=== PATIENT | male | born 1930 | race American Indian/Alaskan Native ===

== ENCOUNTER 2017-01-30 17:21 | Emergency (ER) | payer MEDICARE ==
--- NOTE | 2017-01-30 19:20 | C.PDOC ---
History Of Present Illness Patient presents to the ED with complaints of left sided rib pain after tripping and falling last night. Patient remembers the event and denies LOC, fever, chills, nausea, or vomiting. Time Seen by Provider: 01/30/17 19:20 Chief Complaint (Nursing): Chest Pain History Per: Patient History/Exam Limitations: no limitations Onset/Duration Of Symptoms: Days (last night ) Current Symptoms Are (Timing): Still Present Severity: Mild Pain Scale Rating Of: 3 Quality: "Pain" Associated Symptoms: denies: Nausea, Dyspnea, Diaphoresis, Syncope Exacerbating Factors: None Alleviating Factors: None Recent travel outside of the [place]: No Additional History Per: Prior Records Past Medical History Reviewed: Historical Data, Nursing Documentation, Vital Signs Vital Signs: Last Vital Signs Temp 98.8 F 01/30/17 17:21 Pulse 88 01/30/17 17:55 Resp 18 01/30/17 17:21 BP 137/66 01/30/17 17:21 Pulse Ox 97 01/30/17 20:12 - Medical History PMH: COPD, Diabetes, HTN Surgical History: CABG (10 years ago), Cholecystectomy Family History: States: Unknown Family Hx - Social History Hx Tobacco Use: No Hx Alcohol Use: No Hx Substance Use: No - Immunization History Hx Tetanus Toxoid Vaccination: No Hx Influenza Vaccination: Yes Hx Pneumococcal Vaccination: Yes Review Of Systems Constitutional: Negative for: Fever, Chills Cardiovascular: Negative for: Chest Pain, Palpitations Gastrointestinal: Negative for: Nausea, Vomiting, Abdominal Pain Musculoskeletal: Positive for: Other (Left sided rib pain). Negative for: Back Pain Skin: Negative for: Rash Neurological: Negative for: Weakness Psych: Negative for: Anxiety Physical Exam - Physical Exam Appears: Non-toxic, No Acute Distress Skin: Warm, Dry, Other (CABG scar ) Head: Normacephalic Eye(s): bilateral: Normal Inspection Oral Mucosa: Moist Neck: Trachea Midline, Supple Chest: Symmetrical, Tenderness (mild tenderness to the mid-auxillary line ), Other (No crepitus ) Cardiovascular: Rhythm Regular Respiratory: No Rales, No Rhonchi, No Wheezing Gastrointestinal/Abdominal: Soft, No Tenderness, No Distention, No Guarding, No Rebound Back: No CVA Tenderness Extremity: Normal ROM, No Tenderness Extremity: Bilateral: Atraumatic, Normal Color And Temperature Neurological/Psych: Oriented x3, Normal Speech, Normal Cognition Gait: Steady ED Course And Treatment O2 Sat by Pulse Oximetry: 97 (room air ) Pulse Ox Interpretation: Normal - Radiology CXR Interpretation: Yes: Other (cabg). No: Infiltrates, Fracture, Pnemothorax - Other Rad ribs X-Ray: Interpreted by Me, Viewed By Me Interpretation: no fx or dislocation Reevaluation Time: 20:05 Reassessment Condition: Improved Disposition Counseled Patient/Family Regarding: Studies Performed, Diagnosis, Need For Followup - Disposition Referrals: Honey Vidales [Staff Provider] - Disposition: HOME/ ROUTINE Disposition Time: 19:20 Condition: FAIR Instructions: Costochondritis (ED), Contusion in Adults (DC) Forms: [employer] (Lithuanian) - Clinical Impression Clinical Impression: Fall, Contusion of rib on left side - Scribe Statement The provider has reviewed the documentation as recorded by the Scribe Ledy Agee All medical record entries made by the Scribe were at my direction and personally dictated by me. I have reviewed the chart and agree that the record accurately reflects my personal performance of the history, physical exam, medical decision making, and the department course for this patient. I have also personally directed, reviewed, and agree with the discharge instructions and disposition.
[2017-01-30 20:30] VITALS: BP 160/70; PULSE 76; RESP 20; TEMP 98.6; O2SAT 98
--- NOTE | 2017-01-31 09:14 | RAD ---
PROCEDURE: Radiographs of the Chest and Left Ribs. HISTORY: fall COMPARISON: None available. TECHNIQUE: Frontal radiograph of the chest and multiple oblique radiographs of the left ribs were obtained. FINDINGS: LEFT RIBS: No appreciable displaced fracture. LUNGS: No focal consolidation. Please note that chest x-ray has limited sensitivity for the detection of pulmonary masses. PLEURA: No significant pleural effusion. No definite pneumothorax. CARDIOVASCULAR: Median sternotomy wires. Heart size appears top normal. Atherosclerotic calcification of the aorta. OTHER FINDINGS: Right upper quadrant surgical clips. IMPRESSION: No appreciable displaced left rib fracture.
--- NOTE | 2017-02-02 17:45 | CARD ---
APPROVED REPORT EKG Measurement Heart [id number] <Conclusion> Normal sinus rhythm Incomplete right bundle branch block Borderline ECG
== END 2017-01-30 20:30 | disposition home or self-care (01) ==
LOC: C.ER 17:21
DX: S20.212A Contusion of left front wall of thorax, initial encounter (principal); W01.0XXA Fall on same level from slipping, tripping and stumbling without subsequent striking against object, initial encounter; Y92.9 Unspecified place or not applicable

== ENCOUNTER 2017-02-07 08:12 | Inpatient (IN) | payer MEDICARE ==
[2017-02-07 08:19] VITALS: BMI 25.0
[2017-02-07] MEDS ORDERED: Albuterol-Ipratrop 3 mg / 0.5 (3 ml) UD INH STA ×2 (08:38)
--- NOTE | 2017-02-07 08:50 | C.PDOC ---
History Of Present Illness Patient presents to ED c/o productive cough with white sputum and worsening wheezing and SOB over the past 2 weeks. He also admits to occasional pleuritic chest pain. Patient denies fever, abdominal pain, nausea/vomiting/diarrhea, dysuria. PMHx of HTN, COPD, DM. Time Seen by Provider: 02/07/17 08:19 Chief Complaint (Nursing): Shortness Of Breath History Per: Patient History/Exam Limitations: clinical condition Onset/Duration Of Symptoms: Days Current Symptoms Are (Timing): Still Present Current Respiratory Medications: See Home Med List Severity: Moderate Associated Symptoms: Productive Cough. denies: Fever, Chills Past Medical History Reviewed: Historical Data, Nursing Documentation, Vital Signs Vital Signs: Last Vital Signs Temp 98.1 F 02/12/17 07:10 Pulse 79 02/12/17 07:37 Resp 18 02/12/17 07:10 BP 180/92 H 02/12/17 07:10 Pulse Ox 97 02/12/17 07:10 - Medical History PMH: COPD, Diabetes, HTN Surgical History: CABG (10 years ago), Cholecystectomy Family History: States: No Known Family Hx - Social History Hx Tobacco Use: No Hx Alcohol Use: No Hx Substance Use: No - Immunization History Hx Tetanus Toxoid Vaccination: No Hx Influenza Vaccination: Yes Hx Pneumococcal Vaccination: Yes Review Of Systems Except As Marked, All Systems Reviewed And Found Negative. Constitutional: Negative for: Fever, Chills Cardiovascular: Negative for: Chest Pain, Palpitations Respiratory: Positive for: Cough, Shortness of Breath, Wheezing Gastrointestinal: Negative for: Nausea, Vomiting, Abdominal Pain, Diarrhea Genitourinary: Negative for: Dysuria, Hematuria Physical Exam - Physical Exam Appears: Non-toxic, In Acute Distress (in mild to moderate respiratory distress) Skin: Normal Color, Warm, Dry Oral Mucosa: Moist Cardiovascular: Rhythm Regular (tachycardic ) Respiratory: Accessory Muscle Use (mild), No Rales, No Rhonchi, Wheezing ( diffuse wheezing B/L, audible without auscultation) Gastrointestinal/Abdominal: Normal Exam, Bowel Sounds, Soft, No Tenderness Extremity: Pedal Edema (+1 pitting edema B/L LEs), No Calf Tenderness Pulses: Left Dorsalis Pedis: Normal, Right Dorsalis Pedis: Normal Neurological/Psych: Oriented x3 ED Course And Treatment - Laboratory Results Result Diagrams: 02/11/17 06:33 02/11/17 06:33 ECG: Interpreted By Me, Viewed By Me (Sinus tachycardia 111bpm, normal axis, RBBB, Q waves III, aVF, no acute ST/T wave changes) ECG Interpretation: Abnormal O2 Sat by Pulse Oximetry: 94 (RA) Pulse Ox Interpretation: Normal - Other Rad CXR X-Ray: Viewed By Me, Read By Radiologist Interpretation: Accession No. : [id number]. Patient Name / ID : ZAK CHAN / [id number]. Exam Date : 02/07/2017 08:35:11 ( Approved ). Study Comment : Sex / Age : M / [id number]. Creator : TEJAS TATE MD. Dictator : TEJAS TATE MD. Cash Shortage Investigator : Distribution Warehouse Manager : TEJAS TATE MD. Approver2 : Report Date : 02/07/2017 10:18:12. My Comment : . PROCEDURE: CHEST RADIOGRAPH, 1 VIEW. HISTORY: SOB. COMPARISON: 01/30/2017. FINDINGS: LUNGS: Ill-defined opacity at right lung base. Possible developing pneumonia. Followup advised. No other abnormal opacity elsewhere. PLEURA: No pneumothorax or pleural fluid seen. CARDIOVASCULAR: Status post CABG. Normal heart size. OSSEOUS STRUCTURES: No significant abnormalities. VISUALIZED UPPER ABDOMEN: Normal. OTHER FINDINGS: None. IMPRESSION: Ill-defined opacity at right base. Possible developing pneumonia. Follow-up advised. Progress Note: Blood work, CXR, EKG ordered and reviewed. Patient placedon Bipap emergently. IV solumedrol, duoneb treatments ordered. IV rocephin + azithromycin ordered for pneumonia. Reevaluation Time: 12:25 Reassessment Condition: Improved (Patient reassessed, appears significantly improved. On exam, he has mild expiratory wheezing and no accessory muslce use. Will need admission for COPD + pneumonia.) - Physician Consult Information Physician Contacted: Toi Muñoz Jr. Outcome Of Conversation: Discussed patient with morales Harley with admission for copd exacerbation, dypsnea, pneumonia. vice president of academic affairs notified of admission. Critical Care Time - Critical Care Note Total Time (in mins): 35 Documented critical care: time excludes all time spent performing seperately billable procedures. Medical Decision Making Medical Decision Making: differential diagnoses considered: asthma/copd exacerbation, CHF exacerbation, IA/ACS, PE, pneumonia, bronchitis Disposition - Disposition Disposition: HOSPITALIZED Disposition Time: 12:39 Condition: STABLE - Clinical Impression Clinical Impression: COPD exacerbation, Pneumonia, Dyspnea Decision To Admit - Pt Status Changed To: Hospital Disposition Of: Inpatient - Admit Certification Admit to Inpatient:: After my assessment, the patient will require hospitalization for at least two midnights. This is because of the severity of symptoms shown, intensity of services needed, and/or the medical risk in this patient being treated as an outpatient. - InPatient: Physician Admission Certification: I certify that this patient requires 2 or more midnights of care for the following reason:: see notes - . Bed Request Type: Telemetry Admitting Physician: Toi Muñoz Jr. Patient Diagnosis: COPD exacerbation, Pneumonia, Dyspnea
[2017-02-07] MEDS ORDERED: Albuterol-Ipratrop 3 mg / 0.5 (3 ml) UD ONE (08:54)
[2017-02-07 09:18] LABS: CHLORIDE 107 mmol/L (98-107)
[2017-02-07 09:19] LABS: POTASSIUM 4.9 mmol/L (3.6-5.2); SODIUM 142 mmol/L (132-148)
[2017-02-07 09:21] LABS: ALB/GLOB RATIO 0.7 (1.0-2.1); ALKALINE PHOSPHATASE 125 U/L (38-126); AST/SGOT 46 U/L (17-59); BILIRUBIN,TOTAL 1.8 mg/dL (0.2-1.3); BLOOD UREA NITROGEN 14 mg/dL (9-20); CARBON DIOXIDE 22 mmol/L (22-30); GFR AFRICAN-AMERICAN > 60; TOTAL PROTEIN 9.1 g/dL (6.3-8.3)
[2017-02-07 09:22] LABS: ALT/SGPT 26 U/L (21-72); CALCIUM 9.1 mg/dl (8.6-10.4); GLUCOSE,RANDOM 107 mg/dL (75-110)
[2017-02-07] MEDS ORDERED: Albuterol 0.083% Inhal Sol (2.5 mg/3 mL) UD IH STA ×3 (10:06→12:30)
--- NOTE | 2017-02-07 10:19 | RAD ---
PROCEDURE: CHEST RADIOGRAPH, 1 VIEW HISTORY: SOB COMPARISON: 01/30/2017 FINDINGS: LUNGS: Ill-defined opacity at right lung base. Possible developing pneumonia. Followup advised. No other abnormal opacity elsewhere. PLEURA: No pneumothorax or pleural fluid seen. CARDIOVASCULAR: Status post CABG. Normal heart size. OSSEOUS STRUCTURES: No significant abnormalities. VISUALIZED UPPER ABDOMEN: Normal. OTHER FINDINGS: None. IMPRESSION: Ill-defined opacity at right base. Possible developing pneumonia. Follow-up advised.
[2017-02-07] MEDS ORDERED: Albuterol 0.083% Inhal Sol (2.5 mg/3 mL) UD ONE ×2 (10:48→12:45)
[2017-02-07 10:54] LABS: ALB/GLOB RATIO 0.7 (1.0-2.1); ALKALINE PHOSPHATASE 97 U/L (38-126); ALT/SGPT 27 U/L (21-72); AST/SGOT 29 U/L (17-59); BLOOD UREA NITROGEN 15 mg/dL (9-20); CALCIUM 8.8 mg/dl (8.6-10.4); CARBON DIOXIDE 22 mmol/L (22-30); CHLORIDE 107 mmol/L (98-107); GFR AFRICAN-AMERICAN > 60; GLUCOSE,RANDOM 100 mg/dL (75-110); POTASSIUM 3.9 mmol/L (3.6-5.2); SODIUM 140 mmol/L (132-148); TOTAL PROTEIN 7.5 g/dL (6.3-8.3)
[2017-02-07 11:11] LABS: INR 1.4
[2017-02-07 12:01] LABS: BASO # 0.1 K/uL (0.0-0.2); BASO % 0.9 % (0.0-2.0); EOS # 5.3 K/uL (0.0-0.7); EOS % 47.5 % (0.0-4.0); HEMATOCRIT 31.1 % (35.0-51.0); LYMPH # 1.9 K/uL (1.0-4.3); LYMPH % 17.2 % (20.0-40.0); MEAN CELL VOLUME 89.1 fL (80.0-94.0); MEAN CORPUSCULAR HEMOGLOBIN 29.4 pg (27.0-31.0); MEAN PLATELET VOLUME 8.2 fL (7.2-11.7); MONO # 0.4 K/uL (0.0-0.8); MONO % 3.3 % (0.0-10.0); NRBC % 0.1 % (0.0-2.0); PLATELET COUNT 173 K/uL (130-400); RED CELL DISTRIBUTION WIDTH 17.5 % (11.5-14.5)
[2017-02-07 12:07] LABS: WHITE BLOOD COUNT 11.1 K/uL (4.8-10.8)
[2017-02-07] MEDS ORDERED: Azithromycin 500 MG in Sodium Chloride 0.9% 250 ML IVPB STA (12:31)
[2017-02-07 12:35] LABS: REACTIVE LYMPHOCYTES 1 % (0-0); TOTAL CELLS COUNTED 100
[2017-02-07 12:36] LABS: EOSINOPHIL 49 % (0-4); NEUTROPHIL 31 % (50-75)
[2017-02-07] MEDS ORDERED: cefTRIAXone IV 1 gm in Dextros 50 ML IVPB ONE (12:46)
[2017-02-07] MEDS ORDERED: Azithromycin 500mg/250ML NS 500 MG/250 ML BAG IVPB ONE (12:47)
--- NOTE | 2017-02-07 12:55 | CP.PCM.HP ---
History of Present Illness - History of Present Illness History of Present Illness: Medicine Note for Dr. Muñoz CC: productive cough x 2 weeks HPI: 86 M with PMHx of COPD, DM, HTN presents to the ED for productive cough. Patient was seen in the ED on 01/30/17 for left sided rib pain s/p fall, no fracture was identified. Patient comes in today with a productive cough with white sputum x 2 weeks. He admitted to pain on inspiration, chills, and generalized body ache. Patient reports he did receive his flu shot for this year. He follows with his personal MD yearly, but has not seen him in 6-7 months. Patient performs all his ADLs without assistance and does not walk with a cane or walker. He lives at home with his . Denied any fever, chills, headache, chest pain, abdominal pain, n/v/d/c, or urinary symptoms. PMHx: COPD, DM, HTN PSHx: CABG (10 years ago), Cholecystectomy Meds: Reviewed and confirmed, as per MAR All: NKDA SHx: Denied x3 FHx: Unremarkable PMD: Follows up with a PMD, but cannot recall the MD's name. 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) - ANESTHESIA Hx Anesthesia: Yes Hx Anesthesia Reactions: No Hx Malignant Hyperthermia: No Meds Allergies/Adverse Reactions: Allergies Allergy/AdvReac Type Severity Reaction Status Date / Time No Known Allergies Allergy Verified 02/07/17 08:19 Physical Exam - Constitutional Appears: No Acute Distress - Head Exam Head Exam: NORMAL INSPECTION, NORMOCEPHALIC - Eye Exam Eye Exam: EOMI, Normal appearance, PERRL Pupil Exam: NORMAL ACCOMODATION - ENT Exam ENT Exam: Mucous Membranes Moist - Neck Exam Neck exam: Positive for: Normal Inspection - Respiratory Exam Respiratory Exam: Chest Wall Tenderness (RLL area), Wheezes (DIFFUSE expiratory wheezing ). absent: Accessory Muscle Use, Decreased Breath Sounds, Rales - Cardiovascular Exam Cardiovascular Exam: Tachycardia, +S1, +S2 - GI/Abdominal Exam GI & Abdominal Exam: Normal Bowel Sounds, Soft. absent: Distended, Tenderness - Rectal Exam Rectal Exam: Deferred - Extremities Exam Extremities exam: Positive for: normal inspection, pedal pulses present. Negative for: pedal edema, tenderness - Neurological Exam Neurological exam: Alert, Oriented x3 - Psychiatric Exam Psychiatric exam: Normal Affect, Normal Mood - Skin Skin Exam: Dry, Intact, Normal Color, Warm Results - Vital Signs Recent Vital Signs: Last Vital Signs Temp 97.6 F 02/07/17 11:46 Pulse 99 H 02/07/17 12:24 Resp 19 02/07/17 11:46 BP 147/69 02/07/17 11:46 Pulse Ox 94 L 02/07/17 12:35 - Labs Result Diagrams: 02/07/17 11:36 02/07/17 10:29 Labs: Laboratory Results - last 24 hr 02/07/17 02/07/17 02/07/17 09:06 10:29 10:29 WBC RBC Hgb Hct MCV MCH MCHC RDW Plt Count MPV Neut % (Auto) Lymph % (Auto) [place] % (Auto) Eos % (Auto) Baso % (Auto) Neut # Lymph # [place] # Eos # Baso # Neutrophils % (Manual) Band Neutrophils % Lymphocytes % (Manual) Reactive Lymphs % Monocytes % (Manual) Eosinophils % (Manual) Platelet Estimate Hypochromasia (manual) Poikilocytosis (manual Anisocytosis (manual) Target Cells PT 16.4 H INR 1.4 APTT 28 Sodium 142 140 Potassium 4.9 3.9 Chloride 107 107 Carbon Dioxide 22 22 Anion Gap 18 15 BUN 14 15 Creatinine 0.9 0.9 Est GFR ( Amer) > 60 > 60 Est GFR (Non-Af Amer) > 60 > 60 POC Glucose (mg/dL) Random Glucose 107 100 Calcium 9.1 8.8 Total Bilirubin 1.8 H 1.0 AST 46 29 ALT 26 27 Alkaline Phosphatase 125 97 Total Creatine Kinase 112 81 CK-MB (Mass) 1.65 1.28 Troponin I 0.0330 NT-Pro-B Natriuret Pep 591 582 Total Protein 9.1 H 7.5 Albumin 3.8 3.2 L Globulin 5.3 H 4.3 H Albumin/Globulin Ratio 0.7 L 0.7 L 02/07/17 02/07/17 11:32 11:36 WBC 11.1 H D RBC 3.49 L Hgb 10.3 L D Hct 31.1 L MCV 89.1 D MCH 29.4 MCHC 33.0 RDW 17.5 H Plt Count 173 MPV 8.2 Neut % (Auto) 31.1 L Lymph % (Auto) 17.2 L [place] % (Auto) 3.3 Eos % (Auto) 47.5 H Baso % (Auto) 0.9 Neut # 3.5 Lymph # 1.9 [place] # 0.4 Eos # 5.3 H Baso # 0.1 Neutrophils % (Manual) 31 L Band Neutrophils % 1 Lymphocytes % (Manual) 17 L Reactive Lymphs % 1 H Monocytes % (Manual) 1 Eosinophils % (Manual) 49 H Platelet Estimate Normal Hypochromasia (manual) Slight Poikilocytosis (manual Slight Anisocytosis (manual) Slight Target Cells Slight PT INR APTT Sodium Potassium Chloride Carbon Dioxide Anion Gap BUN Creatinine Est GFR ( Amer) Est GFR (Non-Af Amer) POC Glucose (mg/dL) 119 H Random Glucose Calcium Total Bilirubin AST ALT Alkaline Phosphatase Total Creatine Kinase CK-MB (Mass) Troponin I NT-Pro-B Natriuret Pep Total Protein Albumin Globulin Albumin/Globulin Ratio Assessment & Plan - Assessment and Plan (Free Text) Plan: RLL Pneumonia * Afebrile, tachycardic, normotensive, leukocytosis, left shift, no bandemia * CXR: Ill-defined opacity at right base. Possible developing pneumonia. Follow-up advised. * Started on Rocephin and Azithromycin 02/07/17, patient received solumedrol in the ED and will be continued on solumedrol, expect increased leukocytosis * Zofran PRN, Toradol PRN for pleuritic pain, tylenol PRN for fever * f/u blood cultures, procalcitonin, rapid flu COPD * Solumedrol 40mg Q8H * Duonebs, mucomyst PRN * Phenergan PRN cough DM * Accuchecks * Metformin 500mg PO BID * f/u HGA1C HTN * Norvasc 10mg PO daily and Cozaar 100mg PO daily Hx of CABG Prophylactic Measures * GI PPX: Pepcid 40mg PO daily * DVT PPX: SCDs, Heparin [id number] DW Tosin Harley DO, PGY-1
[2017-02-07] MEDS: Acetylcysteine 20% Inhal Soln (4ml) INH SCH (20:11)
[2017-02-07] MEDS: Albuterol-Ipratrop 3 mg / 0.5 (3 ml) UD INH SCH (20:11)
[2017-02-07] MEDS: MethylPREDNISolone 40 mg Vial IVP SCH (21:00)
[2017-02-08] MEDS: Promethazine 12.5 mg/10 ml Syrup PO PRN ×3 (00:46→14:33)
[2017-02-08] MEDS: Albuterol-Ipratrop 3 mg / 0.5 (3 ml) UD INH SCH ×4 (02:16→19:53)
[2017-02-08] MEDS: Acetylcysteine 20% Inhal Soln (4ml) INH SCH ×4 (02:16→19:54)
[2017-02-08] MEDS: MethylPREDNISolone 40 mg Vial IVP SCH ×3 (03:01→19:24)
[2017-02-08 06:25] LABS: BASO # 0.1 K/uL (0.0-0.2); CHLORIDE 104 mmol/L (98-107); EOS % 0.3 % (0.0-4.0); HEMATOCRIT 30.6 % (35.0-51.0); LYMPH # 1.4 K/uL (1.0-4.3); LYMPH % 19.9 % (20.0-40.0); MEAN CELL VOLUME 88.7 fL (80.0-94.0); MEAN CORPUSCULAR HEMOGLOBIN 29.9 pg (27.0-31.0); MEAN CORPUSCULAR HGB CONC 33.7 g/dL (33.0-37.0); MEAN PLATELET VOLUME 8.2 fL (7.2-11.7); MONO # 0.2 K/uL (0.0-0.8); MONO % 2.6 % (0.0-10.0); RED CELL DISTRIBUTION WIDTH 17.6 % (11.5-14.5); WHITE BLOOD COUNT 7.1 K/uL (4.8-10.8)
[2017-02-08 06:26] LABS: SODIUM 141 mmol/L (132-148)
[2017-02-08 06:27] LABS: POTASSIUM 4.2 mmol/L (3.6-5.2)
[2017-02-08 06:28] LABS: CHOLESTEROL 133 mg/dL (0-199)
[2017-02-08 06:29] LABS: ALB/GLOB RATIO 0.7 (1.0-2.1); ALKALINE PHOSPHATASE 107 U/L (38-126); ALT/SGPT 30 U/L (21-72); AST/SGOT 27 U/L (17-59); BILIRUBIN,TOTAL 0.8 mg/dL (0.2-1.3); BLOOD UREA NITROGEN 19 mg/dL (9-20); CARBON DIOXIDE 23 mmol/L (22-30); GFR AFRICAN-AMERICAN > 60; GLUCOSE,RANDOM 178 mg/dL (75-110); PHOSPHOROUS 3.4 mg/dL (2.5-4.5); TOTAL PROTEIN 8.1 g/dL (6.3-8.3)
[2017-02-08 06:30] LABS: CALCIUM 8.9 mg/dl (8.6-10.4); MAGNESIUM 2.3 mg/dL (1.6-2.3)
[2017-02-08 07:00] LABS: THYROID STIMULATING HORMONE 0.09 mIU/L (0.46-4.68)
--- NOTE | 2017-02-08 07:53 | CP.PCM.PN ---
<Pritesh Caldwell - Last Filed: 02/08/17 13:54> Subjective - Date & Time of Evaluation Date of Evaluation: 02/08/17 Time of Evaluation: 07:53 - Subjective Subjective: Medicine note for Dr. Muñoz's Service Pt seen and examined at bedside.He states that he is feeling much better from time of admission. He continues to cough and is requesting a cough suppressant to help him out with this. He denies F/C/N/V/CP/SOB/D/C. Objective - Vital Signs/Intake and Output Vital Signs (last 24 hours): Temp Pulse Resp BP Pulse Ox 98.3 F 80 20 155/73 H 100 02/07/17 23:30 02/08/17 05:50 02/07/17 23:30 02/07/17 23:30 02/07/17 23:30 Intake and Output: 02/08/17 02/08/17 06:59 18:59 Intake Total 430 Output Total 200 Balance 230 - Medications Medications: Current Medications Acetaminophen (Tylenol 325mg Tab) 650 mg PO Q6 PRN PRN Reason: Fever >100.4 F Acetylcysteine (Acetylcysteine 20%) 4 ml INH RQ6 [facility] Last Admin: 02/08/17 07:29 Dose: 4 ml Albuterol/Ipratropium (Duoneb 3 Mg/0.5 Mg (3 Ml) Ud) 3 ml INH RQ6 [facility] Last Admin: 02/08/17 07:29 Dose: 3 ml Amlodipine Besylate (Norvasc) 10 mg PO DAILY [facility] Famotidine (Pepcid) 40 mg PO DAILY [facility] Heparin Sodium (Porcine) (Heparin) 5,000 units SC Q12 [facility] Last Admin: 02/07/17 22:37 Dose: 5,000 units Azithromycin 500 mg/ Sodium (Chloride) 250 mls @ 250 mls/hr IVPB DAILY [facility] Ceftriaxone Sodium 1 gm/ (Sodium Chloride) 100 mls @ 100 mls/hr IVPB DAILY [facility] Ketorolac Tromethamine (Toradol) 30 mg IVP Q6 PRN PRN Reason: Pain, moderate (4-7) Losartan Potassium (Cozaar) 100 mg PO DAILY [facility] Metformin HCl (Glucophage) 500 mg PO BID [facility] Last Admin: 02/07/17 17:45 Dose: 500 mg Methylprednisolone (Solu-Medrol) 40 mg IVP Q8H [facility] Last Admin: 02/08/17 03:01 Dose: 40 mg Ondansetron HCl (Zofran Inj) 4 mg IVP Q6H PRN PRN Reason: Nausea/Vomiting Promethazine HCl (Phenergan Syrup) 12.5 mg PO Q6 PRN PRN Reason: Cough Last Admin: 02/08/17 06:45 Dose: 12.5 mg - Labs Labs: 02/08/17 06:09 02/08/17 06:09 PT 16.4 SECONDS (9.7-12.2) H 02/07/17 10:29 INR 1.4 02/07/17 10:29 APTT 28 SECONDS (21-34) 02/07/17 10:29 - Constitutional Appears: No Acute Distress - Head Exam Head Exam: ATRAUMATIC - Eye Exam Eye Exam: EOMI - ENT Exam ENT Exam: Mucous Membranes Moist - Respiratory Exam Respiratory Exam: Decreased Breath Sounds, NORMAL BREATHING PATTERN. absent: Respiratory Distress Additional comments: coarse breath sounds R>L - Cardiovascular Exam Cardiovascular Exam: Tachycardia (mild), REGULAR RHYTHM - GI/Abdominal Exam GI & Abdominal Exam: Soft. absent: Tenderness - Neurological Exam Neurological Exam: Alert, Awake, Oriented x3 Assessment and Plan - Assessment and Plan (Free Text) Plan: RLL Pneumonia * Clinically improved, afebrile overnight, remains tachycardic, normotensive, leukocytosis resolving * CXR: Ill-defined opacity at right base. Possible developing pneumonia. Follow-up advised. * Started on Rocephin and Azithromycin 02/07/17 * Zofran PRN, Toradol PRN for pleuritic pain, tylenol PRN for fever * blood cultures- pending * procalcitonin- negative * rapid flu test- negative * leukocytosis resolving- 11 yesterday down to 7 today COPD * Solumedrol 40mg Q8H * Duonebs, mucomyst PRN * Phenergan PRN cough DM * Accuchecks * Metformin 500mg PO BID * HGA1C- 5.9 HTN * Norvasc 10mg PO daily and Cozaar 100mg PO daily Hx of CABG Prophylactic Measures * GI PPX: Pepcid 40mg PO daily * DVT PPX: SCDs, Heparin [id number] Will discuss [address] Dr. Muñoz. <Toi Muñoz Jr. - Last Filed: 02/17/17 13:53> Objective - Vital Signs/Intake and Output Vital Signs (last 24 hours): Temp Pulse Resp BP Pulse Ox 98.2 F 85 20 159/73 H 96 02/12/17 15:05 02/12/17 15:05 02/12/17 15:05 02/12/17 15:05 02/12/17 15:05 - Labs Labs: 02/12/17 07:50 02/12/17 07:50 PT 16.4 SECONDS (9.7-12.2) H 02/07/17 10:29 INR 1.4 02/07/17 10:29 APTT 28 SECONDS (21-34) 02/07/17 10:29 Attending/Attestation - Attestation I have personally seen and examined this patient.: Yes I have fully participated in the care of the patient.: Yes I have reviewed all pertinent clinical information, including history, physical exam and plan: Yes Notes (Text): 02/17/17 13:53 Agree with resident note and plan of care
[2017-02-08] MEDS: Azithromycin 500 MG in Sodium Chloride 0.9% 250 ML IVPB SCH (09:37)
[2017-02-09] MEDS: Acetylcysteine 20% Inhal Soln (4ml) INH SCH ×4 (01:58→19:58)
[2017-02-09] MEDS: Albuterol-Ipratrop 3 mg / 0.5 (3 ml) UD INH SCH ×4 (01:59→19:58)
[2017-02-09] MEDS: MethylPREDNISolone 40 mg Vial IVP SCH ×3 (04:53→21:00)
--- NOTE | 2017-02-09 07:38 | CP.PCM.PN ---
<Pritesh Caldwell - Last Filed: 02/09/17 08:44> Subjective - Date & Time of Evaluation Date of Evaluation: 02/09/17 Time of Evaluation: 07:38 - Subjective Subjective: Medicine Note for Dr. Muñoz's Service Pt seen and examined at bedside. He states that he is feeling much better today. He reports an improvement in his coughing and states that his wheezing has resolved. He is waiting to be examined by Dr. Bhakta. He denies F/C/N/V/CP/SOB /D/C. Objective - Vital Signs/Intake and Output Vital Signs (last 24 hours): Temp Pulse Resp BP Pulse Ox 98 F 96 H 20 165/83 H 97 02/09/17 04:00 02/09/17 04:20 02/09/17 04:00 02/09/17 04:00 02/08/17 23:27 Intake and Output: 02/09/17 02/09/17 06:59 18:59 Intake Total 470 Balance 470 - Medications Medications: Current Medications Acetaminophen (Tylenol 325mg Tab) 650 mg PO Q6 PRN PRN Reason: Fever >100.4 F Acetylcysteine (Acetylcysteine 20%) 4 ml INH RQ6 [facility] Last Admin: 02/09/17 01:58 Dose: Not Given Albuterol/Ipratropium (Duoneb 3 Mg/0.5 Mg (3 Ml) Ud) 3 ml INH RQ6 [facility] Last Admin: 02/09/17 01:59 Dose: Not Given Amlodipine Besylate (Norvasc) 10 mg PO DAILY [facility] Last Admin: 02/08/17 09:36 Dose: 10 mg Famotidine (Pepcid) 40 mg PO DAILY [facility] Last Admin: 02/08/17 09:36 Dose: 40 mg Heparin Sodium (Porcine) (Heparin) 5,000 units SC Q12 [facility] Last Admin: 02/08/17 22:38 Dose: 5,000 units Azithromycin 500 mg/ Sodium (Chloride) 250 mls @ 250 mls/hr IVPB DAILY [facility] Last Admin: 02/08/17 09:37 Dose: 250 mls/hr Ceftriaxone Sodium 1 gm/ (Sodium Chloride) 100 mls @ 100 mls/hr IVPB DAILY [facility] Last Admin: 02/08/17 09:37 Dose: 100 mls/hr Ketorolac Tromethamine (Toradol) 30 mg IVP Q6 PRN PRN Reason: Pain, moderate (4-7) Last Admin: 02/08/17 19:25 Dose: 30 mg Losartan Potassium (Cozaar) 100 mg PO DAILY [facility] Last Admin: 02/08/17 09:36 Dose: 100 mg Metformin HCl (Glucophage) 500 mg PO BID [facility] Last Admin: 02/08/17 18:05 Dose: 500 mg Methylprednisolone (Solu-Medrol) 40 mg IVP Q8H [facility] Last Admin: 02/09/17 04:53 Dose: 40 mg Ondansetron HCl (Zofran Inj) 4 mg IVP Q6H PRN PRN Reason: Nausea/Vomiting Promethazine HCl (Phenergan Syrup) 12.5 mg PO Q6 PRN PRN Reason: Cough Last Admin: 02/08/17 14:33 Dose: 12.5 mg - Labs Labs: 02/08/17 06:09 02/08/17 06:09 PT 16.4 SECONDS (9.7-12.2) H 02/07/17 10:29 INR 1.4 02/07/17 10:29 APTT 28 SECONDS (21-34) 02/07/17 10:29 - Constitutional Appears: No Acute Distress - Head Exam Head Exam: ATRAUMATIC, NORMAL INSPECTION - Eye Exam Eye Exam: EOMI, Normal appearance - ENT Exam ENT Exam: Mucous Membranes Moist - Respiratory Exam Respiratory Exam: Wheezes (mild expiratory), NORMAL BREATHING PATTERN. absent: Respiratory Distress - Cardiovascular Exam Cardiovascular Exam: REGULAR RHYTHM - GI/Abdominal Exam GI & Abdominal Exam: Soft. absent: Tenderness - Neurological Exam Neurological Exam: Alert, Awake, Oriented x3 - Psychiatric Exam Psychiatric exam: Normal Affect, Normal Mood - Skin Skin Exam: Dry, Intact Assessment and Plan - Assessment and Plan (Free Text) Plan: RLL Pneumonia * Clinically improved, afebrile overnight, remains tachycardic, normotensive, leukocytosis resolving. Patient will be evaluated by Dr. Bhakta prior to discharge. * CXR: Ill-defined opacity at right base. Possible developing pneumonia. Follow-up advised. * Started on Rocephin and Azithromycin 02/07/17 * Zofran PRN, Toradol PRN for pleuritic pain, tylenol PRN for fever * blood cultures- NGTD * procalcitonin- negative * rapid flu test- negative * leukocytosis resolving- 8.8 today COPD * Solumedrol 40mg Q8H * Duonebs, mucomyst PRN * Phenergan PRN cough DM * Accuchecks * Metformin 500mg PO BID * HGA1C- 5.9 HTN * Norvasc 10mg PO daily and Cozaar 100mg PO daily Hx of CABG Low TSH- Possible Subclinical Hyperthyroidism * TSH 0.09 * Free T4 2.15 * Will need outpatient follow up Prophylactic Measures * GI PPX: Pepcid 40mg PO daily * DVT PPX: SCDs, Heparin [id number] Will discuss with Dr. Muñoz. <Toi Muñoz Jr. - Last Filed: 02/17/17 13:55> Objective - Vital Signs/Intake and Output Vital Signs (last 24 hours): Temp Pulse Resp BP Pulse Ox 98.2 F 85 20 159/73 H 96 02/12/17 15:05 02/12/17 15:05 02/12/17 15:05 02/12/17 15:05 02/12/17 15:05 - Labs Labs: 02/12/17 07:50 02/12/17 07:50 PT 16.4 SECONDS (9.7-12.2) H 02/07/17 10:29 INR 1.4 02/07/17 10:29 APTT 28 SECONDS (21-34) 02/07/17 10:29 Attending/Attestation - Attestation I have personally seen and examined this patient.: Yes I have fully participated in the care of the patient.: Yes I have reviewed all pertinent clinical information, including history, physical exam and plan: Yes Notes (Text): 02/17/17 13:54 Agree with resident note and plan of care
[2017-02-09 08:00] LABS: BASO % 0.4 % (0.0-2.0); HEMATOCRIT 31.7 % (35.0-51.0); LYMPH # 1.2 K/uL (1.0-4.3); LYMPH % 13.9 % (20.0-40.0); MEAN CELL VOLUME 87.8 fL (80.0-94.0); MEAN CORPUSCULAR HEMOGLOBIN 28.9 pg (27.0-31.0); MEAN CORPUSCULAR HGB CONC 32.9 g/dL (33.0-37.0); MEAN PLATELET VOLUME 8.1 fL (7.2-11.7); MONO # 0.4 K/uL (0.0-0.8); MONO % 4.6 % (0.0-10.0); RED CELL DISTRIBUTION WIDTH 17.2 % (11.5-14.5); WHITE BLOOD COUNT 8.8 K/uL (4.8-10.8)
[2017-02-09 08:20] LABS: CHLORIDE 102 mmol/L (98-107); SODIUM 140 mmol/L (132-148)
[2017-02-09 08:21] LABS: POTASSIUM 4.7 mmol/L (3.6-5.2)
[2017-02-09 08:22] LABS: GFR AFRICAN-AMERICAN > 60
[2017-02-09 08:23] LABS: ALB/GLOB RATIO 0.7 (1.0-2.1); ALKALINE PHOSPHATASE 91 U/L (38-126); ALT/SGPT 35 U/L (21-72); AST/SGOT 26 U/L (17-59); BILIRUBIN,TOTAL 0.6 mg/dL (0.2-1.3); BLOOD UREA NITROGEN 30 mg/dL (9-20); CALCIUM 9.3 mg/dl (8.6-10.4); CARBON DIOXIDE 26 mmol/L (22-30); GLUCOSE,RANDOM 155 mg/dL (75-110); PHOSPHOROUS 3.6 mg/dL (2.5-4.5); TOTAL PROTEIN 7.8 g/dL (6.3-8.3)
[2017-02-09 08:24] LABS: MAGNESIUM 2.3 mg/dL (1.6-2.3)
[2017-02-09] MEDS: Azithromycin 500 MG in Sodium Chloride 0.9% 250 ML IVPB SCH (11:50)
[2017-02-10] MEDS: Acetylcysteine 20% Inhal Soln (4ml) INH SCH ×4 (01:15→19:39)
[2017-02-10] MEDS: Albuterol-Ipratrop 3 mg / 0.5 (3 ml) UD INH SCH ×4 (01:15→19:39)
[2017-02-10] MEDS: MethylPREDNISolone 40 mg Vial IVP SCH ×3 (04:01→21:00)
[2017-02-10 07:36] LABS: BASO % 0.4 % (0.0-2.0); EOS % 0.1 % (0.0-4.0); HEMATOCRIT 31.7 % (35.0-51.0); LYMPH % 11.3 % (20.0-40.0); MEAN CELL VOLUME 88.7 fL (80.0-94.0); MEAN CORPUSCULAR HEMOGLOBIN 29.6 pg (27.0-31.0); MEAN CORPUSCULAR HGB CONC 33.4 g/dL (33.0-37.0); MEAN PLATELET VOLUME 8.1 fL (7.2-11.7); MONO # 0.2 K/uL (0.0-0.8); MONO % 2.7 % (0.0-10.0); NRBC % 0.2 % (0.0-2.0); RED CELL DISTRIBUTION WIDTH 17.1 % (11.5-14.5); WHITE BLOOD COUNT 8.5 K/uL (4.8-10.8)
[2017-02-10 07:50] LABS: CHLORIDE 101 mmol/L (98-107); SODIUM 136 mmol/L (132-148)
[2017-02-10 07:51] LABS: POTASSIUM 4.6 mmol/L (3.6-5.2)
[2017-02-10 07:52] LABS: GFR AFRICAN-AMERICAN > 60
[2017-02-10 07:53] LABS: ALB/GLOB RATIO 0.8 (1.0-2.1); ALKALINE PHOSPHATASE 84 U/L (38-126); ALT/SGPT 61 U/L (21-72); AST/SGOT 47 U/L (17-59); BILIRUBIN,TOTAL 0.6 mg/dL (0.2-1.3); BLOOD UREA NITROGEN 34 mg/dL (9-20); CALCIUM 9.2 mg/dl (8.6-10.4); CARBON DIOXIDE 23 mmol/L (22-30); GLUCOSE,RANDOM 173 mg/dL (75-110); PHOSPHOROUS 3.4 mg/dL (2.5-4.5); TOTAL PROTEIN 7.6 g/dL (6.3-8.3)
[2017-02-10 07:54] LABS: MAGNESIUM 2.1 mg/dL (1.6-2.3)
[2017-02-10] MEDS: Promethazine 12.5 mg/10 ml Syrup PO PRN (10:00)
[2017-02-10] MEDS: Azithromycin 500 MG in Sodium Chloride 0.9% 250 ML IVPB SCH (10:00)
--- NOTE | 2017-02-10 12:14 | CP.PCM.CON ---
History of Present Illness - History of Present Illness History of Present Illness: reason for consultation: productive cough and shortness of breath 86-year-old male with past medical history off COPD, hypertension, diabetes presented to emergency room with 2 week history off cough productive of whitish phlegm associated with increasing shortness of breath, not responding to nebulizer treatment. Also was complaining off chills but no fever. PMHx: COPD, DM, HTN PSHx: CABG (10 years ago), Cholecystectomy Meds: Reviewed and confirmed, as per MAR All: NKDA SHx: Denied x3 FHx: Unremarkable Review of Systems - Review of Systems All systems: reviewed and no additional remarkable complaints except (shortness of breath, productive cough and chills) Past Patient History - Infectious Disease Hx of Infectious Diseases: None - Past Social History Smoking Status: Former Smoker - CARDIAC Hx Hypertension: Yes - PULMONARY Hx Chronic Obstructive Pulmonary Disease (COPD): Yes - NEUROLOGICAL Hx Neurological Disorder: No - HEENT Hx HEENT Problems: No - RENAL Hx Chronic Kidney Disease: No - ENDOCRINE/METABOLIC Hx Endocrine Disorders: Yes Hx Diabetes Mellitus Type 2: Yes - HEMATOLOGICAL/ONCOLOGICAL Hx Blood Disorders: No - INTEGUMENTARY Hx Dermatological Problems: No - MUSCULOSKELETAL/RHEUMATOLOGICAL Hx Musculoskeletal Disorders: No Hx Falls: No - GASTROINTESTINAL Hx Gastrointestinal Disorders: No - GENITOURINARY/GYNECOLOGICAL Hx Genitourinary Disorders: No - PSYCHIATRIC Hx Psychophysiologic Disorder: No Hx Substance Use: No - SURGICAL HISTORY Hx Surgeries: Yes Hx Cholecystectomy: Yes 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) - ANESTHESIA Hx Anesthesia: Yes Hx Anesthesia Reactions: No Hx Malignant Hyperthermia: No Meds Allergies/Adverse Reactions: Allergies Allergy/AdvReac Type Severity Reaction Status Date / Time No Known Allergies Allergy Verified 02/07/17 08:19 - Medications Medications: Current Medications Acetaminophen (Tylenol 325mg Tab) 650 mg PO Q6 PRN PRN Reason: Fever >100.4 F Acetylcysteine (Acetylcysteine 20%) 4 ml INH RQ6 [facility] Last Admin: 02/10/17 07:30 Dose: Not Given Albuterol/Ipratropium (Duoneb 3 Mg/0.5 Mg (3 Ml) Ud) 3 ml INH RQ6 [facility] Last Admin: 02/10/17 07:31 Dose: 3 ml Amlodipine Besylate (Norvasc) 10 mg PO DAILY [facility] Last Admin: 02/10/17 09:58 Dose: 10 mg Famotidine (Pepcid) 40 mg PO DAILY [facility] Last Admin: 02/10/17 09:58 Dose: 40 mg Heparin Sodium (Porcine) (Heparin) 5,000 units SC Q12 [facility] Last Admin: 02/10/17 09:59 Dose: 5,000 units Azithromycin 500 mg/ Sodium (Chloride) 250 mls @ 250 mls/hr IVPB DAILY [facility] Last Admin: 02/10/17 10:00 Dose: 250 mls/hr Ceftriaxone Sodium 1 gm/ (Sodium Chloride) 100 mls @ 100 mls/hr IVPB DAILY [facility] Last Admin: 02/10/17 10:00 Dose: 100 mls/hr Losartan Potassium (Cozaar) 100 mg PO DAILY [facility] Last Admin: 02/10/17 09:59 Dose: 100 mg Metformin HCl (Glucophage) 500 mg PO BID [facility] Last Admin: 02/10/17 09:58 Dose: 500 mg Methylprednisolone (Solu-Medrol) 40 mg IVP Q8H [facility] Last Admin: 02/10/17 11:25 Dose: 40 mg Ondansetron HCl (Zofran Inj) 4 mg IVP Q6H PRN PRN Reason: Nausea/Vomiting Promethazine HCl (Phenergan Syrup) 12.5 mg PO Q6 PRN PRN Reason: Cough Last Admin: 02/10/17 10:00 Dose: 12.5 mg Physical Exam - Constitutional Appears: No Acute Distress - Head Exam Head Exam: ATRAUMATIC, NORMOCEPHALIC - Eye Exam Eye Exam: Normal appearance - ENT Exam ENT Exam: Mucous Membranes Moist - Neck Exam Neck exam: Positive for: Normal Inspection - Respiratory Exam Respiratory Exam: Rhonchi - Cardiovascular Exam Cardiovascular Exam: REGULAR RHYTHM - GI/Abdominal Exam GI & Abdominal Exam: Normal Bowel Sounds, Soft - Extremities Exam Extremities exam: Positive for: normal inspection - Neurological Exam Neurological exam: Alert, Oriented x3 Results - Vital Signs Recent Vital Signs: Last Vital Signs Temp 98.0 F 02/10/17 07:50 Pulse 92 H 02/10/17 07:50 Resp 18 02/10/17 07:50 BP 153/74 H 02/10/17 07:50 Pulse Ox 97 02/10/17 07:50 - Labs Result Diagrams: 02/10/17 07:15 02/10/17 07:15 Labs: Laboratory Results - last 24 hr 02/09/17 02/10/17 02/10/17 21:49 06:13 07:15 WBC 8.5 RBC 3.57 L Hgb 10.6 L Hct 31.7 L MCV 88.7 MCH 29.6 MCHC 33.4 RDW 17.1 H Plt Count 148 MPV 8.1 Neut % (Auto) 85.5 H Lymph % (Auto) 11.3 L [place] % (Auto) 2.7 Eos % (Auto) 0.1 Baso % (Auto) 0.4 Neut # 7.3 H Lymph # 1.0 [place] # 0.2 Eos # 0.0 Baso # 0.0 Sodium Potassium Chloride Carbon Dioxide Anion Gap BUN Creatinine Est GFR ( Amer) Est GFR (Non-Af Amer) POC Glucose (mg/dL) 245 H 198 H Random Glucose Calcium Phosphorus Magnesium Total Bilirubin AST ALT Alkaline Phosphatase Total Protein Albumin Globulin Albumin/Globulin Ratio 02/10/17 07:15 WBC RBC Hgb Hct MCV MCH MCHC RDW Plt Count MPV Neut % (Auto) Lymph % (Auto) [place] % (Auto) Eos % (Auto) Baso % (Auto) Neut # Lymph # [place] # Eos # Baso # Sodium 136 Potassium 4.6 Chloride 101 Carbon Dioxide 23 Anion Gap 16 BUN 34 H Creatinine 1.2 Est GFR ( Amer) > 60 Est GFR (Non-Af Amer) 58 POC Glucose (mg/dL) Random Glucose 173 H Calcium 9.2 Phosphorus 3.4 Magnesium 2.1 Total Bilirubin 0.6 AST 47 ALT 61 Alkaline Phosphatase 84 Total Protein 7.6 Albumin 3.3 L Globulin 4.3 H Albumin/Globulin Ratio 0.8 L Assessment & Plan (1) COPD exacerbation Status: Acute Comment: ccontinue IV steroids and from tomorrow switch to p.o. prednisone. Continue IV antibiotics and nebulizer treatment
--- NOTE | 2017-02-10 13:11 | CP.PCM.PN ---
<Angeles Lenz - Last Filed: 02/10/17 13:06> Subjective - Date & Time of Evaluation Date of Evaluation: 02/10/17 Time of Evaluation: 07:00 - Subjective Subjective: PGY-1 - Medicine Note- Dr. Muñoz's service Patient is seen and examined at bedside and in no acute distress. Patient says his breathing is getting better and he feels less shortness of breath. Patient denies chest pain, abdominal pain, nausea, vomiting, constipation or diarrhea. Objective - Vital Signs/Intake and Output Vital Signs (last 24 hours): Temp Pulse Resp BP Pulse Ox 98.0 F 92 H 18 153/74 H 97 02/10/17 07:50 02/10/17 07:50 02/10/17 07:50 02/10/17 07:50 02/10/17 07:50 Intake and Output: 02/10/17 02/10/17 06:59 18:59 Intake Total 470 Output Total 500 Balance -30 - Medications Medications: Current Medications Acetaminophen (Tylenol 325mg Tab) 650 mg PO Q6 PRN PRN Reason: Fever >100.4 F Acetylcysteine (Acetylcysteine 20%) 4 ml INH RQ6 [facility] Last Admin: 02/10/17 07:30 Dose: Not Given Albuterol/Ipratropium (Duoneb 3 Mg/0.5 Mg (3 Ml) Ud) 3 ml INH RQ6 [facility] Last Admin: 02/10/17 07:31 Dose: 3 ml Amlodipine Besylate (Norvasc) 10 mg PO DAILY [facility] Last Admin: 02/10/17 09:58 Dose: 10 mg Famotidine (Pepcid) 40 mg PO DAILY [facility] Last Admin: 02/10/17 09:58 Dose: 40 mg Heparin Sodium (Porcine) (Heparin) 5,000 units SC Q12 [facility] Last Admin: 02/10/17 09:59 Dose: 5,000 units Azithromycin 500 mg/ Sodium (Chloride) 250 mls @ 250 mls/hr IVPB DAILY [facility] Last Admin: 02/10/17 10:00 Dose: 250 mls/hr Ceftriaxone Sodium 1 gm/ (Sodium Chloride) 100 mls @ 100 mls/hr IVPB DAILY [facility] Last Admin: 02/10/17 10:00 Dose: 100 mls/hr Losartan Potassium (Cozaar) 100 mg PO DAILY [facility] Last Admin: 02/10/17 09:59 Dose: 100 mg Metformin HCl (Glucophage) 500 mg PO BID [facility] Last Admin: 02/10/17 09:58 Dose: 500 mg Methylprednisolone (Solu-Medrol) 40 mg IVP Q8H [facility] Last Admin: 02/10/17 11:25 Dose: 40 mg Ondansetron HCl (Zofran Inj) 4 mg IVP Q6H PRN PRN Reason: Nausea/Vomiting Promethazine HCl (Phenergan Syrup) 12.5 mg PO Q6 PRN PRN Reason: Cough Last Admin: 02/10/17 10:00 Dose: 12.5 mg - Labs Labs: 02/10/17 07:15 02/10/17 07:15 PT 16.4 SECONDS (9.7-12.2) H 02/07/17 10:29 INR 1.4 02/07/17 10:29 APTT 28 SECONDS (21-34) 02/07/17 10:29 - Constitutional Appears: Well, Non-toxic, No Acute Distress - Head Exam Head Exam: ATRAUMATIC, NORMAL INSPECTION, NORMOCEPHALIC - Eye Exam Eye Exam: EOMI, Normal appearance, PERRL - ENT Exam ENT Exam: Mucous Membranes Moist, Normal Exam - Neck Exam Neck Exam: Full ROM. absent: Lymphadenopathy - Respiratory Exam Respiratory Exam: Wheezes, NORMAL BREATHING PATTERN Additional comments: mild wheezing on inspiration - Cardiovascular Exam Cardiovascular Exam: REGULAR RHYTHM, RRR. absent: Gallop, Rubs, Murmur - GI/Abdominal Exam GI & Abdominal Exam: Soft, Normal Bowel Sounds - Extremities Exam Extremities Exam: Full ROM, Normal Inspection. absent: Pedal Edema - Back Exam Back Exam: NORMAL INSPECTION - Neurological Exam Neurological Exam: Alert, Awake, Oriented x3 - Psychiatric Exam Psychiatric exam: Normal Affect, Normal Mood - Skin Skin Exam: Dry, Intact, Normal Color, Warm Assessment and Plan - Assessment and Plan (Free Text) Assessment: RLL Pneumonia * Clinically improved, afebrile overnight, remains tachycardic, normotensive, leukocytosis resolving. * Patient evaluated by Dr. Bhakta who recommends switching prednisone to po tomorrow, continue antibiotics * CXR: Ill-defined opacity at right base. Possible developing pneumonia. Follow-up advised. * Started on Rocephin and Azithromycin 02/07/17 * Zofran PRN, Toradol PRN for pleuritic pain, tylenol PRN for fever * blood cultures- NGTD * procalcitonin- negative * rapid flu test- negative * leukocytosis resolving- 8.8 today COPD * Solumedrol 40mg Q8H * Duonebs, mucomyst PRN * Phenergan PRN cough DM * Accuchecks * Metformin 500mg PO BID * HGA1C- 5.9 HTN * Norvasc 10mg PO daily and Cozaar 100mg PO daily Low TSH- Possible Subclinical Hyperthyroidism * TSH 0.09 * Free T4 2.15 * Will need outpatient follow up Prophylactic Measures * GI PPX: Pepcid 40mg PO daily * DVT PPX: SCDs, Heparin [id number] <Toi Muñoz Jr. - Last Filed: 02/17/17 13:55> Objective - Vital Signs/Intake and Output Vital Signs (last 24 hours): Temp Pulse Resp BP Pulse Ox 98.2 F 85 20 159/73 H 96 02/12/17 15:05 02/12/17 15:05 02/12/17 15:05 02/12/17 15:05 02/12/17 15:05 - Labs Labs: 02/12/17 07:50 02/12/17 07:50 PT 16.4 SECONDS (9.7-12.2) H 02/07/17 10:29 INR 1.4 02/07/17 10:29 APTT 28 SECONDS (21-34) 02/07/17 10:29 Attending/Attestation - Attestation I have personally seen and examined this patient.: Yes I have fully participated in the care of the patient.: Yes I have reviewed all pertinent clinical information, including history, physical exam and plan: Yes Notes (Text): 02/17/17 13:55 Agree with resident note and plan of care
[2017-02-11] MEDS: Albuterol-Ipratrop 3 mg / 0.5 (3 ml) UD INH SCH ×4 (01:17→19:22)
[2017-02-11] MEDS: Acetylcysteine 20% Inhal Soln (4ml) INH SCH ×4 (01:18→19:22)
[2017-02-11] MEDS: MethylPREDNISolone 40 mg Vial IVP SCH ×2 (04:47→11:43)
[2017-02-11 06:40] LABS: BASO % 0.4 % (0.0-2.0); HEMATOCRIT 30.1 % (35.0-51.0); LYMPH # 0.9 K/uL (1.0-4.3); LYMPH % 12.7 % (20.0-40.0); MEAN CELL VOLUME 85.4 fL (80.0-94.0); MEAN CORPUSCULAR HEMOGLOBIN 28.6 pg (27.0-31.0); MEAN CORPUSCULAR HGB CONC 33.5 g/dL (33.0-37.0); MEAN PLATELET VOLUME 8.1 fL (7.2-11.7); MONO # 0.3 K/uL (0.0-0.8); MONO % 4.2 % (0.0-10.0); RED CELL DISTRIBUTION WIDTH 17.8 % (11.5-14.5); WHITE BLOOD COUNT 7.3 K/uL (4.8-10.8)
[2017-02-11 06:51] LABS: CHLORIDE 101 mmol/L (98-107); POTASSIUM 4.8 mmol/L (3.6-5.2); SODIUM 137 mmol/L (132-148)
[2017-02-11 06:53] LABS: BILIRUBIN,TOTAL 0.6 mg/dL (0.2-1.3); GFR AFRICAN-AMERICAN > 60
[2017-02-11 06:54] LABS: ALKALINE PHOSPHATASE 84 U/L (38-126); ALT/SGPT 98 U/L (21-72); AST/SGOT 55 U/L (17-59); BLOOD UREA NITROGEN 33 mg/dL (9-20); CARBON DIOXIDE 26 mmol/L (22-30); GLUCOSE,RANDOM 172 mg/dL (75-110); PHOSPHOROUS 3.5 mg/dL (2.5-4.5); TOTAL PROTEIN 7.1 g/dL (6.3-8.3)
[2017-02-11 06:55] LABS: CALCIUM 9.2 mg/dl (8.6-10.4); MAGNESIUM 2.2 mg/dL (1.6-2.3)
[2017-02-11 06:56] LABS: ALB/GLOB RATIO 0.7 (1.0-2.1)
--- NOTE | 2017-02-11 07:40 | CP.PCM.PN ---
<Angeles Lenz - Last Filed: 02/11/17 17:12> Subjective - Date & Time of Evaluation Date of Evaluation: 02/11/17 Time of Evaluation: 07:00 - Subjective Subjective: PGY-1 - Medicine Note- Dr. Muñoz's service Patient is seen and examined sitting in chair next to bed. Patient is confused and says that the nurses moved his couch and big tv out of the room. Patient says he knows he is in [facility]. called to talk to patient and he became more oriented. I explained to patient that he was thinking of the couch and tv in his house and he agreed. explained to me over the phone that this happened the other day as well. Patient's breathing is improving. Patient denies shortness of breath, chest pain, abdominal pain, nausea, vomiting, constipation or diarrhea. Objective - Vital Signs/Intake and Output Vital Signs (last 24 hours): Temp Pulse Resp BP Pulse Ox 98.5 F 107 H 20 156/76 H 97 02/10/17 23:35 02/11/17 02:18 02/10/17 23:35 02/10/17 23:35 02/10/17 23:35 Intake and Output: 02/11/17 02/11/17 06:59 18:59 Intake Total 520 Output Total 750 Balance -230 - Medications Medications: Current Medications Acetaminophen (Tylenol 325mg Tab) 650 mg PO Q6 PRN PRN Reason: Fever >100.4 F Acetylcysteine (Acetylcysteine 20%) 4 ml INH RQ6 [facility] Last Admin: 02/11/17 07:29 Dose: Not Given Albuterol/Ipratropium (Duoneb 3 Mg/0.5 Mg (3 Ml) Ud) 3 ml INH RQ6 [facility] Last Admin: 02/11/17 07:30 Dose: 3 ml Amlodipine Besylate (Norvasc) 10 mg PO DAILY [facility] Last Admin: 02/10/17 09:58 Dose: 10 mg Famotidine (Pepcid) 40 mg PO DAILY [facility] Last Admin: 02/10/17 09:58 Dose: 40 mg Heparin Sodium (Porcine) (Heparin) 5,000 units SC Q12 [facility] Last Admin: 02/10/17 22:14 Dose: 5,000 units Azithromycin 500 mg/ Sodium (Chloride) 250 mls @ 250 mls/hr IVPB DAILY [facility] Last Admin: 02/10/17 10:00 Dose: 250 mls/hr Ceftriaxone Sodium 1 gm/ (Sodium Chloride) 100 mls @ 100 mls/hr IVPB DAILY [facility] Last Admin: 02/10/17 10:00 Dose: 100 mls/hr Losartan Potassium (Cozaar) 100 mg PO DAILY [facility] Last Admin: 02/10/17 09:59 Dose: 100 mg Metformin HCl (Glucophage) 500 mg PO BID [facility] Last Admin: 02/10/17 17:55 Dose: 500 mg Methylprednisolone (Solu-Medrol) 40 mg IVP Q8H [facility] Last Admin: 02/11/17 04:47 Dose: 40 mg Ondansetron HCl (Zofran Inj) 4 mg IVP Q6H PRN PRN Reason: Nausea/Vomiting Promethazine HCl (Phenergan Syrup) 12.5 mg PO Q6 PRN PRN Reason: Cough Last Admin: 02/10/17 10:00 Dose: 12.5 mg - Labs Labs: 02/11/17 06:33 02/11/17 06:33 PT 16.4 SECONDS (9.7-12.2) H 02/07/17 10:29 INR 1.4 02/07/17 10:29 APTT 28 SECONDS (21-34) 02/07/17 10:29 - Constitutional Appears: Well, Non-toxic, No Acute Distress - Head Exam Head Exam: ATRAUMATIC, NORMAL INSPECTION, NORMOCEPHALIC - Eye Exam Eye Exam: EOMI, Normal appearance, PERRL - ENT Exam ENT Exam: Mucous Membranes Moist, Normal Exam - Neck Exam Neck Exam: Full ROM, Normal Inspection. absent: Lymphadenopathy - Respiratory Exam Respiratory Exam: Clear to Ausculation Bilateral, NORMAL BREATHING PATTERN. absent: Rales, Rhonchi, Wheezes, Respiratory Distress, Stridor - Cardiovascular Exam Cardiovascular Exam: REGULAR RHYTHM, RRR. absent: Gallop, Rubs, Murmur - GI/Abdominal Exam GI & Abdominal Exam: Soft, Normal Bowel Sounds - Extremities Exam Extremities Exam: Full ROM, Normal Inspection. absent: Pedal Edema - Neurological Exam Neurological Exam: Alert, Awake, Oriented x3 Assessment and Plan - Assessment and Plan (Free Text) Assessment: RLL Pneumonia * Clinically improved, afebrile overnight, remains tachycardic, normotensive, leukocytosis resolving. * Patient evaluated by Dr. Bhakta who recommends continuing antibiotics * CXR: Ill-defined opacity at right base. Possible developing pneumonia. Follow-up advised. * Started on Rocephin and Azithromycin 02/07/17 * Zofran PRN, Toradol PRN for pleuritic pain, tylenol PRN for fever * blood cultures- NGTD * procalcitonin- negative * rapid flu test- negative * leukocytosis resolving- 8.8 today COPD * Solumedrol 40mg Q8H IV changed to 40 mg PO daily on 02/11 * Duonebs, mucomyst PRN * Phenergan PRN cough DM * Accuchecks * Metformin 500mg PO BID * HGA1C- 5.9 HTN * Norvasc 10mg PO daily and Cozaar 100mg PO daily Low TSH- Possible Subclinical Hyperthyroidism * TSH 0.09 * Free T4 2.15 * Will need outpatient follow up Prophylactic Measures * GI PPX: Pepcid 40mg PO daily * DVT PPX: SCDs, Heparin 5000 Q12 <Toi Muñoz Jr. - Last Filed: 02/17/17 13:56> Objective - Vital Signs/Intake and Output Vital Signs (last 24 hours): Temp Pulse Resp BP Pulse Ox 98.2 F 85 20 159/73 H 96 02/12/17 15:05 02/12/17 15:05 02/12/17 15:05 02/12/17 15:05 02/12/17 15:05 - Labs Labs: 02/12/17 07:50 02/12/17 07:50 PT 16.4 SECONDS (9.7-12.2) H 02/07/17 10:29 INR 1.4 02/07/17 10:29 APTT 28 SECONDS (21-34) 02/07/17 10:29 Attending/Attestation - Attestation I have personally seen and examined this patient.: Yes I have fully participated in the care of the patient.: Yes I have reviewed all pertinent clinical information, including history, physical exam and plan: Yes Notes (Text): 02/17/17 13:56 Agree with resident note and plan of care
--- NOTE | 2017-02-11 10:54 | CP.PCM.PN ---
Subjective - Date & Time of Evaluation Date of Evaluation: 02/11/17 Time of Evaluation: 10:00 - Subjective Subjective: patient seen and examined. Still complaining off cough and shortness of breath though feel better Afebrile Objective - Vital Signs/Intake and Output Vital Signs (last 24 hours): Temp Pulse Resp BP Pulse Ox 97.8 F 92 H 18 156/76 H 97 02/11/17 07:05 02/11/17 07:05 02/11/17 07:05 02/10/17 23:35 02/10/17 23:35 Intake and Output: 02/11/17 02/11/17 06:59 18:59 Intake Total 520 Output Total 750 Balance -230 - Medications Medications: Current Medications Acetaminophen (Tylenol 325mg Tab) 650 mg PO Q6 PRN PRN Reason: Fever >100.4 F Acetylcysteine (Acetylcysteine 20%) 4 ml INH RQ6 [facility] Last Admin: 02/11/17 07:29 Dose: Not Given Albuterol/Ipratropium (Duoneb 3 Mg/0.5 Mg (3 Ml) Ud) 3 ml INH RQ6 [facility] Last Admin: 02/11/17 07:30 Dose: 3 ml Amlodipine Besylate (Norvasc) 10 mg PO DAILY [facility] Last Admin: 02/10/17 09:58 Dose: 10 mg Famotidine (Pepcid) 40 mg PO DAILY [facility] Last Admin: 02/10/17 09:58 Dose: 40 mg Heparin Sodium (Porcine) (Heparin) 5,000 units SC Q12 [facility] Last Admin: 02/10/17 22:14 Dose: 5,000 units Azithromycin 500 mg/ Sodium (Chloride) 250 mls @ 250 mls/hr IVPB DAILY [facility] Last Admin: 02/10/17 10:00 Dose: 250 mls/hr Ceftriaxone Sodium 1 gm/ (Sodium Chloride) 100 mls @ 100 mls/hr IVPB DAILY [facility] Last Admin: 02/10/17 10:00 Dose: 100 mls/hr Losartan Potassium (Cozaar) 100 mg PO DAILY [facility] Last Admin: 02/10/17 09:59 Dose: 100 mg Metformin HCl (Glucophage) 500 mg PO BID [facility] Last Admin: 02/10/17 17:55 Dose: 500 mg Methylprednisolone (Solu-Medrol) 40 mg IVP Q8H [facility] Last Admin: 02/11/17 04:47 Dose: 40 mg Ondansetron HCl (Zofran Inj) 4 mg IVP Q6H PRN PRN Reason: Nausea/Vomiting Promethazine HCl (Phenergan Syrup) 12.5 mg PO Q6 PRN PRN Reason: Cough Last Admin: 02/10/17 10:00 Dose: 12.5 mg - Labs Labs: 02/11/17 06:33 02/11/17 06:33 PT 16.4 SECONDS (9.7-12.2) H 02/07/17 10:29 INR 1.4 02/07/17 10:29 APTT 28 SECONDS (21-34) 02/07/17 10:29 - Head Exam Head Exam: ATRAUMATIC, NORMOCEPHALIC - Eye Exam Eye Exam: Normal appearance - ENT Exam ENT Exam: Mucous Membranes Moist - Neck Exam Neck Exam: Normal Inspection - Respiratory Exam Respiratory Exam: Rhonchi - Cardiovascular Exam Cardiovascular Exam: REGULAR RHYTHM - GI/Abdominal Exam GI & Abdominal Exam: Soft, Normal Bowel Sounds - Extremities Exam Extremities Exam: Full ROM - Neurological Exam Neurological Exam: Alert, Oriented x3 Assessment and Plan (1) COPD exacerbation Assessment & Plan: Continue nebulizer treatment and taper steroids Continue antibiotics Continue antitussive Status: Acute
[2017-02-11] MEDS: Azithromycin 500 MG in Sodium Chloride 0.9% 250 ML IVPB SCH (11:13)
[2017-02-11] MEDS: Promethazine 12.5 mg/10 ml Syrup PO PRN ×2 (11:43→21:22)
[2017-02-12] MEDS: Acetylcysteine 20% Inhal Soln (4ml) INH SCH ×2 (01:09→07:37)
[2017-02-12] MEDS: Albuterol-Ipratrop 3 mg / 0.5 (3 ml) UD INH SCH ×2 (07:37→13:20)
[2017-02-12 08:03] LABS: BASO % 0.6 % (0.0-2.0); EOS % 0.1 % (0.0-4.0); HEMATOCRIT 32.7 % (35.0-51.0); LYMPH # 1.7 K/uL (1.0-4.3); LYMPH % 20.3 % (20.0-40.0); MEAN CELL VOLUME 86.6 fL (80.0-94.0); MEAN CORPUSCULAR HEMOGLOBIN 28.6 pg (27.0-31.0); MEAN PLATELET VOLUME 8.1 fL (7.2-11.7); MONO % 11.7 % (0.0-10.0); NRBC % 0.2 % (0.0-2.0); RED CELL DISTRIBUTION WIDTH 17.4 % (11.5-14.5); WHITE BLOOD COUNT 8.6 K/uL (4.8-10.8)
[2017-02-12 08:13] LABS: CHLORIDE 101 mmol/L (98-107)
[2017-02-12 08:14] LABS: POTASSIUM 4.7 mmol/L (3.6-5.2); SODIUM 140 mmol/L (132-148)
[2017-02-12 08:16] LABS: AST/SGOT 44 U/L (17-59); BILIRUBIN,TOTAL 0.7 mg/dL (0.2-1.3); CARBON DIOXIDE 29 mmol/L (22-30); GFR AFRICAN-AMERICAN > 60
[2017-02-12 08:17] LABS: ALB/GLOB RATIO 0.7 (1.0-2.1); ALKALINE PHOSPHATASE 80 U/L (38-126); ALT/SGPT 109 U/L (21-72); BLOOD UREA NITROGEN 32 mg/dL (9-20); CALCIUM 9.6 mg/dl (8.6-10.4); GLUCOSE,RANDOM 102 mg/dL (75-110); MAGNESIUM 2.1 mg/dL (1.6-2.3); PHOSPHOROUS 3.8 mg/dL (2.5-4.5); TOTAL PROTEIN 7.5 g/dL (6.3-8.3)
[2017-02-12] MEDS: Promethazine 12.5 mg/10 ml Syrup PO PRN (10:36)
[2017-02-12] MEDS: Azithromycin 500 MG in Sodium Chloride 0.9% 250 ML IVPB SCH (11:26)
[2017-02-12 15:54] VITALS: BP 159/73; PULSE 85; RESP 20; TEMP 98.2; O2SAT 96
--- NOTE | 2017-02-12 15:55 | CP.PCM.DIS ---
Provider - Provider Date of Admission: 02/07/17 12:39 Attending physician: Toi Muñoz Jr, MD Consults: Dr. Bhakta (pulm) Time Spent in preparation of Discharge (in minutes): 45 Diagnosis - Discharge Diagnosis (1) Pneumonia Status: Resolved Comment: Please see summary for details (2) Hypertension Status: Chronic Comment: Please see summary for details (3) COPD (chronic obstructive pulmonary disease) Status: Chronic Comment: Please see summary for details (4) Diabetes mellitus Status: Chronic Comment: Please see summary for details (5) Asthma exacerbation Status: Resolved Comment: Please see summary for details Hospital Course - Lab Results Lab Results: Most Recent Lab Values WBC 8.6 K/uL (4.8-10.8) 02/12/17 07:50 RBC 3.77 Mil/uL (4.40-5.90) L 02/12/17 07:50 Hgb 10.8 g/dL (12.0-18.0) L 02/12/17 07:50 Hct 32.7 % (35.0-51.0) L 02/12/17 07:50 MCV 86.6 fL (80.0-94.0) 02/12/17 07:50 MCH 28.6 pg (27.0-31.0) 02/12/17 07:50 MCHC 33.0 g/dL (33.0-37.0) 02/12/17 07:50 RDW 17.4 % (11.5-14.5) H 02/12/17 07:50 Plt Count 260 K/uL (130-400) 02/12/17 07:50 MPV 8.1 fL (7.2-11.7) 02/12/17 07:50 Neut % (Auto) 67.3 % (50.0-75.0) 02/12/17 07:50 Lymph % (Auto) 20.3 % (20.0-40.0) 02/12/17 07:50 Andrews % (Auto) 11.7 % (0.0-10.0) H 02/12/17 07:50 Eos % (Auto) 0.1 % (0.0-4.0) 02/12/17 07:50 Baso % (Auto) 0.6 % (0.0-2.0) 02/12/17 07:50 Neut # 5.8 K/uL (1.8-7.0) 02/12/17 07:50 Lymph # 1.7 K/uL (1.0-4.3) 02/12/17 07:50 Andrews # 1.0 K/uL (0.0-0.8) H 02/12/17 07:50 Eos # 0.0 K/uL (0.0-0.7) 02/12/17 07:50 Baso # 0.0 K/uL (0.0-0.2) 02/12/17 07:50 Neutrophils % (Manual) 31 % (50-75) L 02/07/17 11:36 Band Neutrophils % 1 % (0-2) 02/07/17 11:36 Lymphocytes % (Manual) 17 % (20-40) L 02/07/17 11:36 Reactive Lymphs % 1 % (0-0) H 02/07/17 11:36 Monocytes % (Manual) 1 % (0-10) 02/07/17 11:36 Eosinophils % (Manual) 49 % (0-4) H 02/07/17 11:36 Platelet Estimate Normal (NORMAL) 02/07/17 11:36 Hypochromasia (manual) Slight 02/07/17 11:36 Poikilocytosis (manual Slight 02/07/17 11:36 Anisocytosis (manual) Slight 02/07/17 11:36 Target Cells Slight 02/07/17 11:36 PT 16.4 SECONDS (9.7-12.2) H 02/07/17 10:29 INR 1.4 02/07/17 10:29 APTT 28 SECONDS (21-34) 02/07/17 10:29 Sodium 140 mmol/L (132-148) 02/12/17 07:50 Potassium 4.7 mmol/L (3.6-5.2) 02/12/17 07:50 Chloride 101 mmol/L (98-107) 02/12/17 07:50 Carbon Dioxide 29 mmol/L (22-30) 02/12/17 07:50 Anion Gap 14 (10-20) 02/12/17 07:50 BUN 32 mg/dL (9-20) H 02/12/17 07:50 Creatinine 1.1 MG/DL (0.8-1.5) 02/12/17 07:50 Est GFR ( Amer) > 60 02/12/17 07:50 Est GFR (Non-Af Amer) > 60 02/12/17 07:50 POC Glucose (mg/dL) 162 mg/dL (65-110) H 02/12/17 11:29 Random Glucose 102 mg/dL (75-110) 02/12/17 07:50 Hemoglobin A1c 5.9 % (4.2-6.5) 02/07/17 11:36 Calcium 9.6 mg/dl (8.6-10.4) 02/12/17 07:50 Phosphorus 3.8 mg/dL (2.5-4.5) 02/12/17 07:50 Magnesium 2.1 mg/dL (1.6-2.3) 02/12/17 07:50 Total Bilirubin 0.7 mg/dL (0.2-1.3) 02/12/17 07:50 AST 44 U/L (17-59) 02/12/17 07:50 ALT 109 U/L (21-72) H 02/12/17 07:50 Alkaline Phosphatase 80 U/L (38-126) 02/12/17 07:50 Total Creatine Kinase 81 U/L (55-170) 02/07/17 10:29 CK-MB (Mass) 1.28 ng/mL (0.0-3.38) 02/07/17 10:29 Troponin I 0.0330 ng/mL (0.00-0.120) 02/07/17 09:06 NT-Pro-B Natriuret Pep 582 pg/mL (0-900) 02/07/17 10:29 Total Protein 7.5 g/dL (6.3-8.3) 02/12/17 07:50 Albumin 3.2 g/dL (3.5-5.0) L 02/12/17 07:50 Globulin 4.3 gm/dL (2.2-3.9) H 02/12/17 07:50 Albumin/Globulin Ratio 0.7 (1.0-2.1) L 02/12/17 07:50 Triglycerides 79 mg/dL (0-149) 02/08/17 06:09 Cholesterol 133 mg/dL (0-199) 02/08/17 06:09 LDL Cholesterol Direct 82 mg/dL (0-129) 02/08/17 06:09 HDL Cholesterol 28 mg/dL (30-70) L 02/08/17 06:09 Procalcitonin 0.05 NG/ML (0.19-0.49) L 02/07/17 15:01 Free T4 2.15 ng/dL (0.78-2.19) 02/08/17 06:09 TSH 3rd Generation 0.09 mIU/L (0.46-4.68) L 02/08/17 06:09 Influenza Typ A,B (EIA) Negative for flu a/b (NEGATIVE) 02/07/17 13:29 - Hospital Course Hospital Course: HPI "86 M with PMHx of COPD, DM, HTN presents to the ED for productive cough. Patient was seen in the ED on 01/30/17 for left sided rib pain s/p fall, no fracture was identified. Patient comes in today with a productive cough with white sputum x 2 weeks. He admitted to pain on inspiration, chills, and generalized body ache. Patient reports he did receive his flu shot for this year. He follows with his personal MD yearly, but has not seen him in 6-7 months. Patient performs all his ADLs without assistance and does not walk with a cane or walker. He lives at home with his . Denied any fever, chills, headache, chest pain, abdominal pain, n/v/d/c, or urinary symptoms." Hospital Course Pneumonia: CXR showed an ill-defined opacity at the right base, significant for possible developing pneumonia. Pt was started on Rocephin and Azithromycin on . Zofran was given PRN for nausea and Toradol was given PRN for pleuritic chest pain. Tylenol was given PRN for fever. Blood cultures showed NGTD. Procalcitonin and rapid flu test were negative. Leukocytosis progressively resolving. COPD: Solumedrol 40mg Q8h IV was changed to 40 mg PO daily on 02/11. Duonebs and mucomyst were given PRN for episodes of acute exacerbation. Phenergan was given PRN for cough. DM: Serial accuchecks were performed to monitor blood glucose. Patient was on Metformin 500mg PO BID. A1c well controlled at 5.9. HTN: Patient given Norvasc 10mg PO daily and Cozaar 100mg PO daily. Possible subclinical hyperthyroidism: TSH measured to be 0.09, but free T4 was 2.15. Advised outpatient follow-up to further investigate. Prophylactic Measures: GI ppx with Pepcid 40 mg PO daily. DVT ppx with SCDs and Heparin 5000 Q12 Patient feeling much better and is breathing much more easily. Patient stable for discharge as per Dr. Muñoz. This is a summary of patient's hospital course, please see chart for full details. Discharge Exam - Head Exam Head Exam: ATRAUMATIC, NORMAL INSPECTION, NORMOCEPHALIC - Eye Exam Eye Exam: EOMI, Normal appearance, PERRL - ENT Exam ENT Exam: Mucous Membranes Moist - Neck Exam Neck exam: Full Rom - Respiratory Exam Respiratory Exam: Clear to PA & Lateral, NORMAL BREATHING PATTERN, UNREMARKABLE. absent: Rales, Rhonchi, Wheezes, Respiratory Distress, Stridor - Cardiovascular Exam Cardiovascular Exam: REGULAR RHYTHM, RRR. absent: Gallop, Rubs, Systolic Murmur - GI/Abdominal Exam GI & Abdominal Exam: Normal Bowel Sounds, Soft. absent: Tenderness - Extremities Exam Extremities exam: full ROM - Neurological Exam Neurological exam: Alert, Oriented x3 - Psychiatric Exam Psychiatric exam: Normal Affect, Normal Mood - Skin Skin Exam: Dry, Normal Color, Warm Discharge Plan - Discharge Medications Prescriptions: Azithromycin [Zithromax Tri-Vasquez] 500 mg PO DAILY #1 tablet Methylprednisolone [Medrol Dose Pack (21 tabs)] 4 mg PO DAILY #21 mg - Follow Up Plan Condition: STABLE Disposition: HOME/ ROUTINE Additional Instructions: Patient cleared for discharge as per Dr. Muñoz. Patient to see primary care doctor within one week for follow up. Patient to complete a Z-Pack and Medrol dose pack. Patient to continue home medications. Instructions explained to patient who understands and agrees. If symptoms worsen or return patient should return to Emergency Room.
--- NOTE | 2017-02-16 09:26 | CARD ---
APPROVED REPORT EKG Measurement Heart [id number] ND 184P [id number] <Conclusion> Sinus tachycardia with fusion complexes Incomplete right bundle branch block Inferior infarct, age undetermined Abnormal ECG
== END 2017-02-12 16:52 | disposition home or self-care (01) | DRG 194 ==
LOC: C.ER 08:12 → C.9E 12:39 → C.6T 13:11
PROVIDERS: ADMIT Internal Medicine; ATTEND Internal Medicine
PROC: 5A09457 Assistance with Respiratory Ventilation, 24-96 Consecutive Hours, Continuous Positive Airway Pressure (ICD-10-PCS; principal; 2017-02-07)
DX: J18.9 Pneumonia, unspecified organism (principal); J44.1 Chronic obstructive pulmonary disease with (acute) exacerbation; E11.9 Type 2 diabetes mellitus without complications; Z95.1 Presence of aortocoronary bypass graft; I10 Essential (primary) hypertension; Z87.891 Personal history of nicotine dependence; Z79.4 Long term (current) use of insulin; E05.90 Thyrotoxicosis, unspecified without thyrotoxic crisis or storm; I25.10 Atherosclerotic heart disease of native coronary artery without angina pectoris

== ENCOUNTER 2017-09-24 15:44 | Inpatient (IN) | payer MEDICARE ==
[2017-09-24 16:04] VITALS: BMI 27.4
[2017-09-24] MEDS ORDERED: Albuterol-Ipratrop 3 mg / 0.5 (3 ml) UD ONE ×2 (16:18→18:12)
[2017-09-24] MEDS ORDERED: Albuterol-Ipratrop 3 mg / 0.5 (3 ml) UD IH STA (16:50)
[2017-09-24] MEDS ORDERED: Albuterol 0.083% Inhal Sol (2.5 mg/3 mL) UD IH STA (16:50)
--- NOTE | 2017-09-24 17:00 | C.PDOC ---
History Of Present Illness 87 y/o male with a PMHx of COPD, diabetes, HTN, s/p CABG, presents to the ED complaining of feeling short of breath intermittently over the past 2 weeks. Associated with wheezing, coughing, and production of yellow sputum. No fevers or chills. Patient states he feels short of breath on exertion with some chest tightness. Reports using nebulizer treatments at home without relief. Denies any associated leg swelling or recent steroid treatment. Time Seen by Provider: 09/24/17 16:26 Chief Complaint (Nursing): Shortness Of Breath History Per: Patient History/Exam Limitations: no limitations Onset/Duration Of Symptoms: Days (x 2 weeks) Current Symptoms Are (Timing): Still Present Initiating Event: Upper Respiratory Illness Quality: Tightness Exacerbating Factor(s): Exertion Past Medical History Reviewed: Historical Data, Nursing Documentation, Vital Signs Vital Signs: Last Vital Signs Temp 98.2 F 09/24/17 16:17 Pulse 98 H 09/24/17 16:17 Resp 20 09/24/17 16:32 BP 156/76 H 09/24/17 16:17 Pulse Ox 100 09/24/17 17:09 - Medical History PMH: COPD, Diabetes, HTN Denies: Chronic Kidney Disease Surgical History: CABG (10 years ago), Cholecystectomy - [facility] Procedures ASSISTANCE WITH RESPIRATORY VENTILATION, 24-96 HRS, CPAP (02/07/17) Family History: States: No Known Family Hx - Social History Hx Tobacco Use: No Hx Alcohol Use: No Hx Substance Use: No - Immunization History Hx Tetanus Toxoid Vaccination: No Hx Influenza Vaccination: Yes Hx Pneumococcal Vaccination: Yes Review Of Systems Except As Marked, All Systems Reviewed And Found Negative. Constitutional: Negative for: Fever, Chills Cardiovascular: Negative for: Chest Pain Respiratory: Positive for: Cough, SOB with Excertion, Sputum, Wheezing Musculoskeletal: Negative for: Other (Leg swelling) Physical Exam - Physical Exam Appears: Non-toxic, No Acute Distress Skin: Warm, Dry, No Rash Head: Atraumatic, Normacephalic Eye(s): bilateral: Normal Inspection, PERRL, EOMI Oral Mucosa: Moist Neck: Normal ROM Chest: Symmetrical Cardiovascular: Rhythm Regular, No Murmur, Other (normal S1,S2) Respiratory: No Rales, No Rhonchi, Wheezing (Inspiratory and expiratory wheezing bilaterally), No Other (respiratory distress) Gastrointestinal/Abdominal: Bowel Sounds (active), Soft, No Tenderness, No Guarding Extremity: Bilateral: Atraumatic, No Pedal Edema, Normal Color And Temperature Pulses: Left Dorsalis Pedis: Normal, Right Dorsalis Pedis: Normal Neurological/Psych: Oriented x3, Normal Speech Gait: Steady ED Course And Treatment - Laboratory Results Result Diagrams: 09/24/17 17:00 09/24/17 17:00 Lab Interpretation: No Acute Changes ECG: Interpreted By Me ECG Rhythm: Sinus Tachycardia, 1st Degree HB, R BBB (incomplete) ECG Interpretation: No Acute Changes O2 Sat by Pulse Oximetry: 100 (RA) Pulse Ox Interpretation: Normal - Radiology CXR: Interpreted by Me CXR Interpretation: Yes: No Acute Disease Progress Note: Ordered and reviewed labs, EKG, CXR. Patient given Duonebx1 and Albuterolx1 nebulizer treatments Reevaluation Time: 17:41 Reassessment Condition: Improved - Physician Consult Information Time Consulting Physician Contacted: 17:41 Physician Contacted: Isidro Larson Outcome Of Conversation: Patient to be admitted for exacerbation COPD Disposition - Disposition Disposition: HOSPITALIZED Disposition Time: 17:41 Condition: STABLE - POA Present On Arrival: None - Clinical Impression Clinical Impression: Respiratory distress, COPD exacerbation - Scribe Statement The provider has reviewed the documentation as recorded by the Scribe (Coco Rosas) Provider Attestation: All medical record entries made by the Scribe were at my direction and personally dictated by me. I have reviewed the chart and agree that the record accurately reflects my personal performance of the history, physical exam, medical decision making, and the department course for this patient. I have also personally directed, reviewed, and agree with the discharge instructions and disposition.
[2017-09-24 17:04] LABS: HEMOGLOBIN 11.6 g/dL (12.0-18.0); MEAN CELL VOLUME 87.4 fL (80.0-94.0); MEAN CORPUSCULAR HEMOGLOBIN 28.9 pg (27.0-31.0); MEAN PLATELET VOLUME 7.9 fL (7.2-11.7); PLATELET COUNT 239 K/uL (130-400); RBC 4.01 Mil/uL (4.40-5.90); RED CELL DISTRIBUTION WIDTH 16.7 % (11.5-14.5); WHITE BLOOD COUNT 8.5 K/uL (4.8-10.8)
[2017-09-24 17:20] LABS: ALB/GLOB RATIO 0.9 (1.0-2.1); ALBUMIN 4.3 g/dL (3.5-5.0); ALT/SGPT 16 U/L (21-72); AST/SGOT 25 U/L (17-59); BLOOD UREA NITROGEN 20 mg/dL (9-20); CALCIUM 9.5 mg/dl (8.6-10.4); GFR AFRICAN-AMERICAN > 60; GFR NON-AFRICAN AMERICAN 52
[2017-09-24 17:29] LABS: B-TYPE NATRIURETIC PEPTIDE 95.8 pg/mL (0-900)
[2017-09-24 17:39] LABS: BASO % 1.4 % (0.0-2.0); EOS % 39.5 % (0.0-4.0); LYMPH # 1.4 K/uL (1.0-4.3); LYMPH % 16.8 % (20.0-40.0); MONO # 0.5 K/uL (0.0-0.8); MONO % 5.8 % (0.0-10.0); NEUT # 3.1 K/uL (1.8-7.0); NEUT % 36.5 % (50.0-75.0); NRBC % 0.1 % (0.0-2.0)
[2017-09-24 17:40] LABS: BASO # 0.1 K/uL (0.0-0.2); EOS # 3.3 K/uL (0.0-0.7)
[2017-09-24 17:52] LABS: EOSINOPHIL 37 % (0-4); LYMPHOCYTE 20 % (20-40); MONOCYTE 3 % (0-10); NEUTROPHIL 40 % (50-75); PLATELET ESTIMATE NORMAL (NORMAL); TOTAL CELLS COUNTED 100
--- NOTE | 2017-09-24 18:01 | RAD ---
PROCEDURE: CHEST RADIOGRAPH, 1 VIEW HISTORY: Shortness of breath COMPARISON: 02/07/2017. FINDINGS: LUNGS: The lungs are well inflated and clear. PLEURA: No pneumothorax or pleural fluid seen. CARDIOVASCULAR: There is mild cardiomegaly. Status post CABG. OSSEOUS STRUCTURES: No significant abnormalities. VISUALIZED UPPER ABDOMEN: Normal. OTHER FINDINGS: None. IMPRESSION: No active pulmonary disease.
[2017-09-24] MEDS: Albuterol-Ipratrop 3 mg / 0.5 (3 ml) UD INH SCH (20:41)
[2017-09-24] MEDS: guaiFENesin DM 100 mg-10 mg/5 ml UD PO SCH (21:44)
[2017-09-24] MEDS: (Novolog) Insulin Aspart, Recombinant 100 u/ml 10 ml vial SC SCH (21:46)
[2017-09-25] MEDS: MethylPREDNISolone 40 mg Vial IV SCH ×3 (00:33→16:05)
[2017-09-25] MEDS: Albuterol-Ipratrop 3 mg / 0.5 (3 ml) UD INH SCH ×7 (00:47→20:33)
[2017-09-25] MEDS: guaiFENesin DM 100 mg-10 mg/5 ml UD PO SCH ×4 (02:44→20:16)
[2017-09-25 08:03] VITALS: RESP 20
[2017-09-25] MEDS: (Novolog) Insulin Aspart, Recombinant 100 u/ml 10 ml vial SC SCH ×4 (08:09→21:54)
[2017-09-25] MEDS ORDERED: Enoxaparin 40 mg Syringe SC SCH (10:00)
[2017-09-25] MEDS: Pantoprazole 40 mg EC Tab PO SCH (11:06)
[2017-09-25 11:31] LABS: BASO % 0.4 % (0.0-2.0); HEMOGLOBIN 11.5 g/dL (12.0-18.0); LYMPH # 0.7 K/uL (1.0-4.3); LYMPH % 11.2 % (20.0-40.0); MEAN CELL VOLUME 87.4 fL (80.0-94.0); MEAN CORPUSCULAR HEMOGLOBIN 29.1 pg (27.0-31.0); MEAN CORPUSCULAR HGB CONC 33.3 g/dL (33.0-37.0); MEAN PLATELET VOLUME 7.9 fL (7.2-11.7); MONO # 0.1 K/uL (0.0-0.8); MONO % 1.2 % (0.0-10.0); NEUT # 5.7 K/uL (1.8-7.0); NEUT % 87.2 % (50.0-75.0); NRBC % 0.1 % (0.0-2.0); RBC 3.95 Mil/uL (4.40-5.90); WHITE BLOOD COUNT 6.5 K/uL (4.8-10.8)
[2017-09-25 11:52] LABS: ALB/GLOB RATIO 0.9 (1.0-2.1); ALBUMIN 4.4 g/dL (3.5-5.0); ALT/SGPT 7 U/L (21-72); AST/SGOT 32 U/L (17-59); BLOOD UREA NITROGEN 23 mg/dL (9-20); CALCIUM 9.5 mg/dl (8.6-10.4); GFR AFRICAN-AMERICAN > 60; GFR NON-AFRICAN AMERICAN 58
--- NOTE | 2017-09-25 14:01 | CP.PCM.PN ---
Subjective - Date & Time of Evaluation Date of Evaluation: 09/25/17 Time of Evaluation: 08:00 - Subjective Subjective: PGY 2 medicine progress note for Dr. Larson: Patient seen and examined at bedside this am. He states that he has been short of breath intermittently for the last 1 weeks which has been associated with wheezing, coughing, and production of yellow sputum. No fevers or chills. Patient states he feels short of breath on exertion with some chest tightness. Reports using nebulizer treatments at home without relief. Denies any associated leg swelling or recent steroid treatment. Denied sick contacts. He stated he felt a bit dizzy yesterday as well. PMHx: COPD, DM, HTN PSHx: CABG (10 years ago), Cholecystectomy Meds: Reviewed and confirmed, as per AUG All: NKDA SHx: Denied x3 FHx: Unremarkable Objective - Vital Signs/Intake and Output Vital Signs (last 24 hours): Temp Pulse Resp BP Pulse Ox 98.3 F 103 H 20 145/83 98 09/25/17 08:01 09/25/17 08:01 09/25/17 08:01 09/25/17 08:01 09/25/17 08:01 Intake and Output: 09/25/17 09/25/17 06:59 18:59 Intake Total 250 Output Total 650 Balance -400 - Medications Medications: Current Medications Albuterol/Ipratropium (Duoneb 3 Mg/0.5 Mg (3 Ml) Ud) 3 ml INH RQ4 [facility] Last Admin: 09/25/17 11:26 Dose: 3 ml Amlodipine Besylate (Norvasc) 10 mg PO DAILY [facility] Last Admin: 09/25/17 11:06 Dose: 10 mg Enoxaparin Sodium (Lovenox) 40 mg SC DAILY [facility] Last Admin: 09/25/17 11:06 Dose: 40 mg Guaifenesin/Dextromethorphan (Robitussin Dm) 5 ml PO Q6H [facility] Last Admin: 09/25/17 08:13 Dose: 5 ml Sodium Chloride (Sodium Chloride 0.9%) 1,000 mls @ 75 mls/hr IV .[id number] [facility] Insulin Aspart (Novolog) 0 unit SC ACHS [facility] PRN Reason: Protocol Last Admin: 09/25/17 12:06 Dose: 1 unit Losartan Potassium (Cozaar) 100 mg PO DAILY [facility] Last Admin: 09/25/17 11:06 Dose: 100 mg Methylprednisolone (Solu-Medrol) 40 mg IV Q8H [facility] Last Admin: 09/25/17 08:12 Dose: 40 mg Pantoprazole Sodium (Protonix Ec Tab) 40 mg PO DAILY [facility] Last Admin: 09/25/17 11:06 Dose: 40 mg Pneumococcal Polyvalent Vaccine (Pneumovax 23 Vaccine) 0.5 ml IM .ONCE ONE Stop: 09/26/17 10:01 - Labs Labs: 09/25/17 11:07 09/25/17 11:07 - Constitutional Appears: Non-toxic, No Acute Distress - Head Exam Head Exam: ATRAUMATIC, NORMAL INSPECTION - Eye Exam Eye Exam: EOMI, PERRL Pupil Exam: NORMAL ACCOMODATION - ENT Exam ENT Exam: Mucous Membranes Moist - Respiratory Exam Respiratory Exam: Wheezes, NORMAL BREATHING PATTERN - Cardiovascular Exam Cardiovascular Exam: Tachycardia, REGULAR RHYTHM, +S1, +S2 - GI/Abdominal Exam GI & Abdominal Exam: Soft, Normal Bowel Sounds. absent: Distended, Firm, Guarding, Tenderness - Extremities Exam Extremities Exam: Normal Inspection - Back Exam Back Exam: NORMAL INSPECTION - Neurological Exam Neurological Exam: Alert, Awake, CN II-XII Intact, Oriented x3 - Psychiatric Exam Psychiatric exam: Normal Affect, Normal Mood - Skin Skin Exam: Normal Color Assessment and Plan - Assessment and Plan (Free Text) Assessment: COPD exacerbtion * Solumedrol 40mg Q8H IV changed to 40 mg PO daily on 02/11 * Duonebs Q4 [facility] * Phenergan PRN cough Elevate DDimer * Ddimer 1439 * f/u CT angio * Patient is tachycardic DM * Accuchecks * Metformin 500mg PO BID - hold today since giving contrast, will need to hold for a few days after * HGA1C- 5.9 HTN * Norvasc 10mg PO daily and Cozaar 100mg PO daily Low TSH- Possible Subclinical Hyperthyroidism * TSH 0.09 * Free T4 2.15 * Will need outpatient follow up Prophylactic Measures * GI PPX: Protonix 40mg PO daily * DVT PPX: Lovenox 40mg SC daily All management per Dr. Larson.
[2017-09-25] MEDS: Sodium Chloride 0.9% 1,000 ML IV SCH (14:11)
[2017-09-25] MEDS ORDERED: Iodixanol 320 MG/ML 100 ML BOTTLE IV ONE (15:51)
--- NOTE | 2017-09-25 17:46 | CT ---
PROCEDURE: CT Chest with contrast (Pulmonary Angiogram) HISTORY: eleavted ddimer r/o PE COMPARISON: None available. TECHNIQUE: Axial computed tomography images were obtained of the chest in the pulmonary arterial phase of enhancement. Coronal and sagittal reformatted images were created and reviewed. Intravenous contrast dose: Visipaque 320, 100 cc Radiation dose: Total exam DLP = 401.36 mGy-cm. This CT exam was performed using one or more of the following dose reduction techniques: Automated exposure control, adjustment of the mA and/or kV according to patient size, and/or use of iterative reconstruction technique. FINDINGS: PULMONARY ARTERIES: Unremarkable. No pulmonary embolism. AORTA: An atherosclerotic nonaneurysmal abdominal aorta is appreciated. LUNGS: No infiltrate is identified although the minimal linear atelectasis or fibrosis seen at the dependent bilateral bases as well as left lower lobe basilar dependent atelectasis. Central airways clear. There is no pulmonary mass appreciated bilaterally. A small calcified granuloma seen the left lower lobe medially superior to the left hemidiaphragm. PLEURAL SPACES: Unremarkable. No effusion or pneuomothorax. HEART: Cardiac size normal. There is no pericardial effusion identified however there is prominent coronary artery atherosclerosis appreciated. Prior median sternotomy noted. LYMPH NODES: No lymphadenopathy. BONES, CHEST WALL: Unremarkable. No fracture or destructive lesion OTHER FINDINGS: Unremarkable. IMPRESSION: 1. A CT evidence of pulmonary embolus. No infiltrate, pleural or pericardial effusion or cardiomegaly. Limited bilateral basilar linear atelectasis or fibrosis noted with limited left lower lobe dependent atelectasis. 2. Extensive coronary artery atherosclerosis without cardiomegaly. Prior median sternotomy noted. 3. No significant lymphadenopathy
[2017-09-26] MEDS: MethylPREDNISolone 40 mg Vial IV SCH ×3 (00:29→21:59)
[2017-09-26] MEDS: Albuterol-Ipratrop 3 mg / 0.5 (3 ml) UD INH SCH ×6 (01:00→19:05)
[2017-09-26 01:38] VITALS: O2SAT 96
[2017-09-26] MEDS: guaiFENesin DM 100 mg-10 mg/5 ml UD PO SCH ×4 (03:00→21:55)
[2017-09-26] MEDS: Sodium Chloride 0.9% 1,000 ML IV SCH ×2 (03:02→16:00)
[2017-09-26 07:52] LABS: BASO % 0.2 % (0.0-2.0); HEMOGLOBIN 10.9 g/dL (12.0-18.0); LYMPH # 0.8 K/uL (1.0-4.3); LYMPH % 7.2 % (20.0-40.0); MEAN CELL VOLUME 87.9 fL (80.0-94.0); MEAN CORPUSCULAR HEMOGLOBIN 28.9 pg (27.0-31.0); MEAN CORPUSCULAR HGB CONC 32.9 g/dL (33.0-37.0); MEAN PLATELET VOLUME 8.3 fL (7.2-11.7); MONO # 0.3 K/uL (0.0-0.8); MONO % 2.7 % (0.0-10.0); NEUT # 9.8 K/uL (1.8-7.0); NEUT % 89.9 % (50.0-75.0); NRBC % 0.1 % (0.0-2.0); PLATELET COUNT 226 K/uL (130-400); RBC 3.75 Mil/uL (4.40-5.90); RED CELL DISTRIBUTION WIDTH 17.1 % (11.5-14.5)
[2017-09-26 07:56] LABS: WHITE BLOOD COUNT 10.9 K/uL (4.8-10.8)
[2017-09-26 08:22] LABS: ALBUMIN 4.2 g/dL (3.5-5.0); CALCIUM 9.5 mg/dl (8.6-10.4)
[2017-09-26] MEDS: (Novolog) Insulin Aspart, Recombinant 100 u/ml 10 ml vial SC SCH ×4 (08:23→21:54)
[2017-09-26] MEDS: Pantoprazole 40 mg EC Tab PO SCH (09:37)
[2017-09-26] MEDS: Enoxaparin 80 mg Syringe SC SCH ×2 (09:37→21:56)
[2017-09-26 09:38] LABS: ANISOCYTOSIS SLIGHT; BANDS 6 % (0-2); BURR CELLS SLIGHT; HYPOCHROMIC SLIGHT; LYMPHOCYTE 6 % (20-40); MONOCYTE 4 % (0-10); MYELOCYTE 1 % (0-0); NEUTROPHIL 83 % (50-75); OVALOCYTES SLIGHT; PLATELET ESTIMATE NORMAL (NORMAL); POIKILOCYTOSIS SLIGHT; TOTAL CELLS COUNTED 100
[2017-09-26 09:39] LABS: TEARDROP CELLS SLIGHT
[2017-09-26] MEDS ORDERED: Pneumococcal 23-Valent Vaccine IM ONE (10:00)
--- NOTE | 2017-09-26 15:49 | CP.PCM.PN ---
Subjective - Date & Time of Evaluation Date of Evaluation: 09/26/17 Time of Evaluation: 15:47 - Subjective Subjective: PGY2 progress ntoe for Dr. Larson Pt seen and examined at bedside. Pt is resting comfortably in bed. Pt still c/ o slight cough with production of yellowish sputum. Pt also c/o CP with coughing. Denies having any SOB, LE pain or swelling, abd pain, N/V/D/c, F/C. Objective - Vital Signs/Intake and Output Vital Signs (last 24 hours): Temp Pulse Resp BP Pulse Ox 98.1 F 101 H 20 117/62 96 09/26/17 00:00 09/26/17 00:00 09/26/17 00:00 09/26/17 00:00 09/26/17 00:00 Intake and Output: 09/26/17 09/26/17 06:59 18:59 Intake Total 720 1000 Output Total 800 Balance -80 1000 - Medications Medications: Current Medications Albuterol/Ipratropium (Duoneb 3 Mg/0.5 Mg (3 Ml) Ud) 3 ml INH RQ4 [facility] Last Admin: 09/26/17 11:17 Dose: 3 ml Amlodipine Besylate (Norvasc) 10 mg PO DAILY [facility] Last Admin: 09/26/17 09:37 Dose: 10 mg Enoxaparin Sodium (Lovenox) 73 mg SC Q12 [facility] Last Admin: 09/26/17 09:37 Dose: 73 mg Guaifenesin/Dextromethorphan (Robitussin Dm) 5 ml PO Q6H [facility] Last Admin: 09/26/17 14:53 Dose: 5 ml Sodium Chloride (Sodium Chloride 0.9%) 1,000 mls @ 75 mls/hr IV .[id number] [facility] Last Admin: 09/26/17 03:02 Dose: 75 mls/hr Insulin Aspart (Novolog) 0 unit SC ACHS [facility] PRN Reason: Protocol Last Admin: 09/26/17 12:20 Dose: 1 unit Losartan Potassium (Cozaar) 100 mg PO DAILY [facility] Last Admin: 09/26/17 09:37 Dose: 100 mg Methylprednisolone (Solu-Medrol) 40 mg IV Q8H [facility] Last Admin: 09/26/17 08:21 Dose: 40 mg Pantoprazole Sodium (Protonix Ec Tab) 40 mg PO DAILY [facility] Last Admin: 09/26/17 09:37 Dose: 40 mg - Labs Labs: 09/26/17 07:43 09/26/17 07:43 - Constitutional Appears: Non-toxic, No Acute Distress - Head Exam Head Exam: ATRAUMATIC - ENT Exam ENT Exam: Mucous Membranes Moist - Respiratory Exam Respiratory Exam: Rales. absent: Accessory Muscle Use, Respiratory Distress - Cardiovascular Exam Cardiovascular Exam: REGULAR RHYTHM, +S1, +S2 - GI/Abdominal Exam GI & Abdominal Exam: Soft, Normal Bowel Sounds. absent: Distended, Firm, Guarding, Rigid, Tenderness, Organomegaly - Extremities Exam Extremities Exam: absent: Pedal Edema, Tenderness - Neurological Exam Neurological Exam: Alert, Awake, Oriented x3 - Psychiatric Exam Psychiatric exam: Normal Affect, Normal Mood - Skin Skin Exam: Dry, Intact, Normal Color, Warm Assessment and Plan - Assessment and Plan (Free Text) Assessment: COPD exacerbtion * Solumedrol 40mg Q8H IV changed to 40 mg PO daily on 02/11 * Duonebs Q4 [facility] * Phenergan PRN cough Pulmonary Embolus * Pt started on therapeutic lovenox * Will check LE dopplers DM * Accuchecks * Metformin 500mg PO BID - hold today since giving contrast, will need to hold for a few days after * HGA1C- 5.9 HTN * Norvasc 10mg PO daily and Cozaar 100mg PO daily Low TSH- Possible Subclinical Hyperthyroidism * TSH 0.09 * Free T4 2.15 * Will need outpatient follow up Prophylactic Measures * GI PPX: Protonix 40mg PO daily * DVT PPX: Lovenox 40mg SC daily All management per Dr. Larson.
[2017-09-27 00:04] VITALS: TEMP 98
[2017-09-27] MEDS: Albuterol-Ipratrop 3 mg / 0.5 (3 ml) UD INH SCH ×4 (00:47→11:35)
[2017-09-27] MEDS: guaiFENesin DM 100 mg-10 mg/5 ml UD PO SCH ×2 (02:48→09:10)
[2017-09-27] MEDS: Sodium Chloride 0.9% 1,000 ML IV SCH (06:57)
[2017-09-27 07:15] LABS: BASO % 0.1 % (0.0-2.0); HEMOGLOBIN 10.3 g/dL (12.0-18.0); LYMPH # 0.6 K/uL (1.0-4.3); LYMPH % 5.9 % (20.0-40.0); MEAN CELL VOLUME 86.4 fL (80.0-94.0); MEAN CORPUSCULAR HEMOGLOBIN 29.1 pg (27.0-31.0); MEAN CORPUSCULAR HGB CONC 33.7 g/dL (33.0-37.0); MEAN PLATELET VOLUME 8.4 fL (7.2-11.7); MONO # 0.3 K/uL (0.0-0.8); MONO % 3.2 % (0.0-10.0); NEUT # 8.7 K/uL (1.8-7.0); NEUT % 90.8 % (50.0-75.0); PLATELET COUNT 190 K/uL (130-400); RBC 3.53 Mil/uL (4.40-5.90); WHITE BLOOD COUNT 9.6 K/uL (4.8-10.8)
[2017-09-27 07:46] LABS: ALBUMIN 3.7 g/dL (3.5-5.0); ALT/SGPT 26 U/L (21-72); AST/SGOT 39 U/L (17-59); BLOOD UREA NITROGEN 27 mg/dL (9-20); CALCIUM 9.1 mg/dl (8.6-10.4); GFR AFRICAN-AMERICAN > 60; GFR NON-AFRICAN AMERICAN > 60
[2017-09-27 08:06] VITALS: BP 157/78; PULSE 100
[2017-09-27] MEDS: (Novolog) Insulin Aspart, Recombinant 100 u/ml 10 ml vial SC SCH ×2 (09:11→13:15)
[2017-09-27 09:55] LABS: LYMPHOCYTE 7 % (20-40); MONOCYTE 3 % (0-10); TOTAL CELLS COUNTED 100
[2017-09-27 09:56] LABS: ANISOCYTOSIS SLIGHT; BANDS 3 % (0-2); NEUTROPHIL 87 % (50-75); PLATELET ESTIMATE NORMAL (NORMAL)
[2017-09-27 09:57] LABS: HYPOCHROMIC SLIGHT; MICROCYTOSIS SLIGHT; OVALOCYTES SLIGHT; POIKILOCYTOSIS SLIGHT; TEARDROP CELLS SLIGHT
[2017-09-27 09:58] LABS: SCHISTOCYTES SLIGHT
[2017-09-27] MEDS: Enoxaparin 80 mg Syringe SC SCH (11:00)
[2017-09-27] MEDS: MethylPREDNISolone 40 mg Vial IV SCH (11:01)
[2017-09-27] MEDS: Pantoprazole 40 mg EC Tab PO SCH (11:08)
--- NOTE | 2017-09-27 12:17 | CP.PCM.PN ---
Subjective - Date & Time of Evaluation Date of Evaluation: 09/27/17 Time of Evaluation: 12:12 - Subjective Subjective: PT SEEN BY DR. ENRIQUEZ AND CLEARED FOR D/C HOME TODAY. LOVENOX BID STOPPED AND PT TO BE RX XARELTO. HAD A LENGTHY DISCUSSION WITH PT AND ABOUT THE XARELTO--RISKS AND BENEFITS. THEY BOTH VERBALIZE UNDERSTANDING OF XARELTO AND RISKS OF BLEEDING. PT ALSO RX 5 DAYS OF PREDNISONE AND COUGH SYRUP PRN. PT TO F/U WITH DR. ENRIQUEZ IN THE OFFICE WITHIN 5-7 DAYS OF DISCHARGE. SEE BELOW FOR D /C INFORMATION DISCUSSED AND SENT WITH PT ON D/C PAPERWORK. NO FURTHER ORDERS. -Emelina MEEK -FOLLOW UP WITH DR. ENRIQUEZ IN THE OFFICE WITHIN 5-7 DAYS---ON FRIDAY CALL THE OFFICE TO SCHEDULE AN APPOINTMENT. -CONTINUE YOUR HOME MEDICATIONS OF: METFORMIN, AMLODIPINE, LOSARTAN, ALBUTEROL NEBULIZER. -NEW PRESCRIPTIONS INCLUDE: 1) XARELTO 15 MG (BLOOD THINNER; TAKE 1 TABLET) BY MOUTH TWICE A DAY (TAKE DURING THE MORNING AT BREAKFAST AND EVENING AT DINNER); START FIRST DOSE THIS EVENING WITH DINNER 2) PREDNISONE (STEROID TO HELP WITH YOUR COUGH AND BREATHING)--20 MG (TAKE 1 TABLET) BY MOUTH ONCE A DAY FOR 5 DAYS (START THIS ON 09/28/17). 3) ROBITUSSIN (COUGH SYRUP) TAKE EVERY 6 HOURS NEEDED FOR COUGH. -YOU WILL BE ON XARELTO FOR SEVERAL MONTHS; THE DAY THAT YOU WILL STOP TAKING THIS WILL BE PER YOUR DOCTOR'S RECOMMENDATIONS. -WHILE TAKING XARELTO, YOU MAY HAVE A TENDENCY TO BLEED EASY---EXAMPLES INCLUDE BRUISING, BLEEDING GUMS OR NOSE. IF YOU NOTICE THESE SIGNS, CONTACT YOUR DOCTOR IMMEDIATELY. -WHILE TAKING XARELTO, DO NOT TAKE MEDICINE THAT MAY INCREASE YOUR CHANCES OF BLEEDING: ASPIRIN, ECOTRIN, BREONNA-SELTZER, IBUPROFEN, MORTIN, ADVIL, ALEVE, NAPROXEN, NAPROSYN. IF YOU ARE UNSURE WHETHER A MEDICINE HAS ASPIRIN IN IT, CONTACT YOUR DOCTOR OR PHARMACY. -IF YOU HAVE ANY FURTHER QUESTIONS OR CONCERNS, CONTACT DR. ENRIQUEZ'S OFFICE. Objective - Vital Signs/Intake and Output Vital Signs (last 24 hours): Temp Pulse Resp BP Pulse Ox 98 F 100 H 20 157/78 H 96 09/27/17 08:00 09/27/17 08:00 09/27/17 08:00 09/27/17 08:00 09/27/17 08:00 Intake and Output: 09/27/17 09/27/17 06:59 18:59 Intake Total 1350 Output Total 650 Balance 700 - Medications Medications: Current Medications Albuterol/Ipratropium (Duoneb 3 Mg/0.5 Mg (3 Ml) Ud) 3 ml INH RQ4 [facility] Last Admin: 09/27/17 11:35 Dose: 3 ml Amlodipine Besylate (Norvasc) 10 mg PO DAILY [facility] Last Admin: 09/27/17 11:01 Dose: 10 mg Guaifenesin/Dextromethorphan (Robitussin Dm) 5 ml PO Q6H [facility] Last Admin: 09/27/17 09:10 Dose: 5 ml Sodium Chloride (Sodium Chloride 0.9%) 1,000 mls @ 75 mls/hr IV .[id number] [facility] Last Admin: 09/27/17 06:57 Dose: 75 mls/hr Insulin Aspart (Novolog) 0 unit SC ACHS [facility] PRN Reason: Protocol Last Admin: 09/27/17 09:11 Dose: 1 unit Losartan Potassium (Cozaar) 100 mg PO DAILY [facility] Last Admin: 09/27/17 11:01 Dose: 100 mg Methylprednisolone (Solu-Medrol) 40 mg IV Q12 [facility] Last Admin: 09/27/17 11:01 Dose: 40 mg Pantoprazole Sodium (Protonix Ec Tab) 40 mg PO DAILY [facility] Last Admin: 09/27/17 11:08 Dose: 40 mg Rivaroxaban (Xarelto) 15 mg PO BID [facility] - Labs Labs: 09/27/17 07:04 09/27/17 07:04
--- NOTE | 2017-09-28 21:13 | CARD ---
APPROVED REPORT EKG Measurement Heart [id number] <Conclusion> Sinus tachycardia with 1st degree AV block Incomplete right bundle branch block Borderline ECG
== END 2017-09-27 14:00 | disposition home or self-care (01) | DRG 190 ==
LOC: C.ER 15:44 → C.9E 17:42 → C.3T 18:43
PROVIDERS: ADMIT Internal Medicine Pulmonary Disease; ATTEND Internal Medicine Pulmonary Disease
DX: J44.1 Chronic obstructive pulmonary disease with (acute) exacerbation (principal); I26.99 Other pulmonary embolism without acute cor pulmonale; E11.9 Type 2 diabetes mellitus without complications; I10 Essential (primary) hypertension; Z95.1 Presence of aortocoronary bypass graft; Z79.84 Long term (current) use of oral hypoglycemic drugs; E05.90 Thyrotoxicosis, unspecified without thyrotoxic crisis or storm; Z79.899 Other long term (current) drug therapy

== ENCOUNTER 2018-02-25 09:59 | Inpatient (IN) | payer MEDICARE ==
[2018-02-25 10:00] VITALS: BMI 27.4
--- NOTE | 2018-02-25 10:44 | C.PDOC ---
History Of Present Illness 87 year old male presents to ED for evaluation of SOB, chest congestion, and increasing bilateral leg swelling for the last few days. Patient states he used his home nebulizer with no improvement. Patient denies fever, chills, nausea, vomiting, and other associated symptoms. SOB, CHEST TA, INCR B/L LEG SWELL X SEV DAYS. NO FEVER. NO IMPROVE W NEB. EXAM NONTOXIC LUNGS B/L SCATTERED RHONCHI, MILD RETRACTION SPEAKING FULL SENTENCES NO RALES EXT 1+EDEMA BL REMAINDER NEG Time Seen by Provider: 02/25/18 10:35 Chief Complaint (Nursing): Shortness Of Breath History Per: Patient History/Exam Limitations: no limitations Onset/Duration Of Symptoms: Days Current Symptoms Are (Timing): Still Present Associated Symptoms: denies: Fever, Chills Recent travel outside of the [place]: No Past Medical History Reviewed: Historical Data, Nursing Documentation, Vital Signs Vital Signs: Last Vital Signs Temp 97.7 F 02/26/18 16:00 Pulse 96 H 02/26/18 16:00 Resp 22 02/26/18 16:00 BP 161/80 H 02/26/18 16:00 Pulse Ox 100 02/26/18 16:29 - Medical History PMH: COPD, Diabetes, HTN Denies: Chronic Kidney Disease Surgical History: CABG, Cholecystectomy - [facility] Procedures ASSISTANCE WITH RESPIRATORY VENTILATION, 24-96 HRS, CPAP (02/07/17) Family History: States: Unknown Family Hx - Social History Hx Tobacco Use: No Hx Alcohol Use: No Hx Substance Use: No - Immunization History Hx Tetanus Toxoid Vaccination: No Hx Influenza Vaccination: Yes Hx Pneumococcal Vaccination: Yes Review Of Systems Except As Marked, All Systems Reviewed And Found Negative. Constitutional: Negative for: Fever, Chills Cardiovascular: Positive for: Other (congested chest). Negative for: Chest Pain Respiratory: Positive for: Shortness of Breath Gastrointestinal: Negative for: Nausea, Vomiting Musculoskeletal: Positive for: Other (bilateral leg swelling) Physical Exam - Physical Exam Appears: Non-toxic Skin: Normal Color, Warm Head: Atraumatic, Normacephalic Eye(s): bilateral: Normal Inspection Oral Mucosa: Moist Neck: Normal, Supple Chest: Symmetrical Respiratory: No Rales, Rhonchi (bilateral scattered ), No Wheezing, Other (mild retraction, speaking full sentences) Back: No CVA Tenderness Extremity: Other (bilateral leg edema, 1+) Neurological/Psych: Oriented x3, Normal Speech Gait: Steady ED Course And Treatment - Laboratory Results Result Diagrams: 02/26/18 06:44 02/26/18 06:44 ECG: Interpreted By Me ECG Rhythm: R BBB ECG Interpretation: No Changes From Prior Rate From EC O2 Sat by Pulse Oximetry: 97 (RA) Pulse Ox Interpretation: Normal Progress - Re-Evaluation Re-evaluation Note: 02/25/18 11:43 DEFER IVF PER SEPSIS PROTOCOL, UNK CARDIAC EF. NONTOXIC NARD. LABS PENDING - Data Reviewed Data Reviewed: Lab, Diagnostic imaging, EKG, Old records Medical Decision Making Medical Decision Making: Plan: - Given Albuterol, Azithromycin, SOLU-Medrol, Rocephin - Chest Xray sent - EKG sent - Blood work sent - Urinalysis Disposition Counseled Patient/Family Regarding: Studies Performed, Diagnosis - Disposition Disposition: HOSPITALIZED Disposition Time: 12:21 Condition: STABLE - POA Present On Arrival: None - Clinical Impression Clinical Impression: COPD exacerbation - Scribe Statement The provider has reviewed the documentation as recorded by the Scribe (Lucia Shine) Provider Attestation: All medical record entries made by the Scribe were at my direction and personally dictated by me. I have reviewed the chart and agree that the record accurately reflects my personal performance of the history, physical exam, medical decision making, and the department course for this patient. I have also personally directed, reviewed, and agree with the discharge instructions and disposition.
[2018-02-25] MEDS: Albuterol-Ipratrop 3 mg / 0.5 (3 ml) UD IH SCH ×3 (11:10→11:32)
[2018-02-25] MEDS ORDERED: Albuterol-Ipratrop 3 mg / 0.5 (3 ml) UD ONE (11:11)
[2018-02-25] MEDS ORDERED: MethylPREDNISolone 40 mg Vial ONE (11:11)
--- NOTE | 2018-02-25 11:15 | RAD ---
Date of service: 02/25/2018 HISTORY: SOB COMPARISON: No prior. TECHNIQUE: Chest PA and lateral FINDINGS: LUNGS: No active pulmonary disease. PLEURA: No significant pleural effusion identified. No pneumothorax apparent. CARDIOVASCULAR: Aortic ectasis stable. Normal cardiac size stable. No pulmonary vascular congestion. OSSEOUS STRUCTURES: Median sternotomy reiterated. VISUALIZED UPPER ABDOMEN: Surgical clips are right upper quadrant reiterated. OTHER FINDINGS: None. IMPRESSION: No interval acute cardiopulmonary disease evident. Median sternotomy reiterated.
[2018-02-25] MEDS ORDERED: Azithromycin 500 MG in Sodium Chloride 0.9% 250 ML IV STA (11:18)
[2018-02-25] MEDS ORDERED: Azithromycin 500mg/250ML NS 500 MG/250 ML BAG IVPB ONE (11:34)
[2018-02-25 11:35] LABS: VENOUS BLOOD GAS BASE EXCESS 0.8 mmol/L (0.0-2.0); VENOUS BLOOD GAS PCO2 58 mmHg (40-60); VENOUS BLOOD GAS PO2 22 mm/Hg (30-55)
[2018-02-25 11:43] LABS: BASO # 0.1 K/uL (0.0-0.2); BASO % 1.8 % (0.0-2.0); EOS # 1.3 K/uL (0.0-0.7); HEMOGLOBIN 9.3 g/dL (12.0-18.0); LYMPH # 0.9 K/uL (1.0-4.3); LYMPH % 15.7 % (20.0-40.0); MEAN CELL VOLUME 83.5 fL (80.0-94.0); MEAN CORPUSCULAR HEMOGLOBIN 26.7 pg (27.0-31.0); MEAN PLATELET VOLUME 7.2 fL (7.2-11.7); MONO # 0.4 K/uL (0.0-0.8); MONO % 6.4 % (0.0-10.0); NEUT # 3.1 K/uL (1.8-7.0); NEUT % 54.1 % (50.0-75.0); PLATELET COUNT 227 K/uL (130-400); RED CELL DISTRIBUTION WIDTH 21.3 % (11.5-14.5); WHITE BLOOD COUNT 5.8 K/uL (4.8-10.8)
[2018-02-25 11:53] LABS: ALB/GLOB RATIO 1.4 (1.0-2.1); ALBUMIN 4.6 g/dL (3.5-5.0); ALT/SGPT 18 U/L (21-72); AST/SGOT 14 U/L (17-59); BLOOD UREA NITROGEN 19 mg/dL (9-20); GFR NON-AFRICAN AMERICAN 58
[2018-02-25 12:05] LABS: B-TYPE NATRIURETIC PEPTIDE 157 pg/mL (0-900)
[2018-02-25 12:46] LABS: ANISOCYTOSIS MODERATE; BANDS 1 % (0-2); BASOPHIL 1 % (0-2); EOSINOPHIL 23 % (0-4); HYPOCHROMIC SLIGHT; LYMPHOCYTE 16 % (20-40); MONOCYTE 5 % (0-10); NEUTROPHIL 54 % (50-75); PLATELET ESTIMATE NORMAL (NORMAL); TOTAL CELLS COUNTED 100
[2018-02-25 12:47] LABS: OVALOCYTES SLIGHT
--- NOTE | 2018-02-25 13:22 | CP.PCM.PN ---
Subjective - Date & Time of Evaluation Date of Evaluation: 02/25/18 Time of Evaluation: 13:13 - Subjective Subjective: Medicine progress note for Dr. Larson's service Patient is an 87 year old male with PMHx pulmonary embolus, COPD, DM, HTN, CAD s /p CABG who presents to the ER with complaint of worsening dyspnea for past week. Patient also complains of cough productive of yellow mucous for past week. Patient states he tried using nebulizer at home three times a day without relief. He states cough was worse when he tried to lay down. He states he is normally able to lay flat without difficulty. He also reports chest pain from coughing, and dizziness. He denies nausea, vomiting, diarrhea, constipation. He denies recent illness requiring hospitalization or sick contacts. PMD: Jessica Larson PMHx: as stated Meds: verified with pharmacy: losartan 100mg, norvasc 10mg, multivitamin, metformin 500mg BID, xarelto 15mg BID filled in september for one month, lasix 20mg daily prn filled once PSHx: CABG, cholecystectomy FamHx: denies Social Hx: former smoker 1-2 cigarettes/ day cannot quantify time, denies alcohol and drugs; lives with Elena Objective - Vital Signs/Intake and Output Vital Signs (last 24 hours): Temp Pulse Resp BP Pulse Ox 98.2 F 100 H 22 132/71 97 02/25/18 10:17 02/25/18 10:17 02/25/18 10:37 02/25/18 10:17 02/25/18 12:43 - Medications Medications: Current Medications Guaifenesin/Dextromethorphan (Robitussin Dm) 10 ml PO Q4H PRN PRN Reason: Cough and congestion Azithromycin 500 mg/ Sodium (Chloride) 250 mls @ 250 mls/hr IVPB DAILY [facility] PRN Reason: Protocol Ceftriaxone Sodium 1 gm/ (Sodium Chloride) 100 mls @ 100 mls/hr IVPB DAILY [facility] PRN Reason: Protocol Methylprednisolone (Solu-Medrol) 40 mg IVP Q8H [facility] - Labs Labs: 02/25/18 11:36 02/25/18 11:36 - Constitutional Appears: No Acute Distress - Head Exam Head Exam: ATRAUMATIC, NORMOCEPHALIC - Eye Exam Eye Exam: EOMI - ENT Exam ENT Exam: Mucous Membranes Moist - Respiratory Exam Respiratory Exam: Rhonchi, Wheezes. absent: Respiratory Distress Additional comments: speaking in full sentences - Cardiovascular Exam Cardiovascular Exam: +S1, +S2. absent: JVD - GI/Abdominal Exam GI & Abdominal Exam: Soft, Normal Bowel Sounds. absent: Tenderness - Extremities Exam Extremities Exam: Normal Inspection. absent: Pedal Edema - Neurological Exam Neurological Exam: Alert, Awake - Psychiatric Exam Psychiatric exam: Normal Affect - Skin Skin Exam: Warm Assessment and Plan - Assessment and Plan (Free Text) Assessment: Dyspnea chest xray: no interval acute cardiopulmonary disease. median sternotomy reiterated (see full report) patient denies COPD history but chest xray appears to show hyperinflation will start solumedrol 40mg IVP q8h patient reports history of cough for past week, is afebrile, no leukocytosis will start rocephin and azithromycin (02/25) will check for mycoplasma, legionella, strep pneumo procalcitonin ordered Pro BNP 157 Chest pain likely pleuritic KEREN negative x 1, will repeat Cough guaifenesin/ DM 10mg PO q4prn cough Elevated lactate patient presented with tachycardia and initial lactate of 2.2 patent afebrile with no other SIRS possible source of infection is respiratory due to history of productive cough- patient being covered with azithromycin and rocephin repeat lactate drawn 2 hours after initial with result of 1.7 HTN home medications verified with patient's pharmacy continue losartan 100mg and norvasc 10mg daily Pulmonary Embolism patient was diagnosed with pulmonary embolus in 09/2017 and was started on Xarelto 15mg PO BID, however patient only took medication for one month per pharmacy starting patient on dose of xarelto 20mg CTA ordered to determine if patient still has evidence of pulmonary embolus Diabetes home metformin 500mg BID held for IV contrast for CTA ISS accuchecks hypoglycemia protocol Anemia hgb 9.3, baseline in past closer to 11 retic count, ferretin, occult blood stool ordered Prophylactic measure protonix 40mg PO daily SCDs All management per Dr. Larson
[2018-02-25 14:21] LABS: URINE BILIRUBIN NEGATIVE (NEGATIVE); URINE BLOOD 1+ (NEGATIVE); URINE CLARITY Clear (Clear); URINE COLOR Yellow (YELLOW); URINE GLUCOSE (UA) NORMAL (Normal); URINE LEUKOCYTE ESTERASE NEG Leu/uL (Negative); URINE PROTEIN 3+ mg/dL (NEGATIVE); URINE UROBILINOGEN NORMAL mg/dL (0.2-1.0)
[2018-02-25] MEDS: Pantoprazole 40 mg EC Tab PO SCH (14:25)
[2018-02-25] MEDS ORDERED: Pantoprazole 40 mg EC Tab PO ONE (14:27)
[2018-02-25] MEDS ORDERED: Iodixanol 320 MG/ML 100 ML BOTTLE IV ONE (14:31)
--- NOTE | 2018-02-25 15:37 | CT ---
Date of service: 02/25/18 CTA chest PE protocol Indication: pulmonary embolus 09/2017, SOB Technique: Contiguous axial images were obtained through the chest with intravenous contrast enhancement. Sagittal and coronal reconstructions were generated and reviewed. This CT exam was performed using 1 or more of the following dose reduction techniques: Automated exposure control, adjustment of the MAA and/or kV according to patient size, and/or use of iterative reconstruction technique. IV Contrast: 100 mL Visipaque IV Radiation dose (DLP): 311.02 MGy-cm. Comparison: Chest x-ray performed 02/25/18, CTA chest performed 09/25/17 Findings: Heart size appears top normal. Median sternotomy wires. No large central or segmental pulmonary embolus evident. No focal consolidation. No pleural effusion. No pneumothorax. 6 mm calcified granuloma, left lung base. 5 mm noncalcified nodule at the right lung base (series 4, image 80), stable since prior study. Limited visualized portions of the upper abdomen: Cholecystectomy clips. Nonobstructing left upper pole renal calculus. No acute osseous abnormality is detected. Impression: No large central or segmental pulmonary embolus identified. Dense coronary artery calcifications. 5 mm noncalcified right lower lobe pulmonary nodule appears stable since 09/25/17. Additional findings as above.
[2018-02-25] MEDS ORDERED: Dextrose 50% SYRINGE Inj (50 ml) IVP PRN (16:58)
[2018-02-25] MEDS ORDERED: Glucagon Recombinant 1 mg Inj IM PRN (16:58)
[2018-02-25] MEDS: (Novolin R) Insulin Human Regular 100 units/ml vial SC SCH ×2 (17:15→21:46)
[2018-02-25 18:16] LABS: CK-MB 1.66 ng/mL (0.0-3.38); TROPONIN I 0.014 ng/mL (0.00-0.120)
[2018-02-25] MEDS: MethylPREDNISolone 40 mg Vial IVP SCH (19:59)
[2018-02-25] MEDS: guaiFENesin DM 200 mg-20 mg/10 ml UD PO PRN (23:18)
[2018-02-26] MEDS: Albuterol-Ipratrop 3 mg / 0.5 (3 ml) UD INH PRN ×3 (00:14→19:11)
[2018-02-26 00:45] LABS: CK-MB 2.09 ng/mL (0.0-3.38)
[2018-02-26] MEDS: MethylPREDNISolone 40 mg Vial IVP SCH ×3 (03:30→19:12)
--- NOTE | 2018-02-26 06:58 | CP.PCM.PN ---
Subjective - Date & Time of Evaluation Date of Evaluation: 02/26/18 Time of Evaluation: 08:00 - Subjective Subjective: PGY 3 medicine progress note for Dr. Larson: Patient was seen and examined at bedside this morning. Patient states his breathing has improved from yesterday. He denies chest pain or palpitations. He denies signs of active bleeding. On this admission patient was found to be anemic. Patient states he had a colonoscopy done but it was years ago. Objective - Vital Signs/Intake and Output Vital Signs (last 24 hours): Temp Pulse Resp BP Pulse Ox 98.2 F 98 H 20 154/76 H 100 02/26/18 06:00 02/26/18 06:00 02/26/18 06:00 02/26/18 06:00 02/26/18 06:00 Intake and Output: 02/25/18 02/26/18 18:59 06:59 Intake Total 515 Balance 515 - Medications Medications: Current Medications Albuterol/Ipratropium (Duoneb 3 Mg/0.5 Mg (3 Ml) Ud) 3 ml INH RQ4 PRN PRN Reason: Shortness of Breath Last Admin: 02/26/18 00:14 Dose: 3 ml Amlodipine Besylate (Norvasc) 10 mg PO DAILY [facility] Aspirin (Aspirin Chewable) 81 mg PO DAILY [facility] Dextrose (Dextrose 50% Inj) 0 ml IVP .STAT PRN; Protocol PRN Reason: Hypoglycemia Protocol Dextrose (Glutose 15) 0 gm PO .ONCE PRN; Protocol PRN Reason: Hypoglycemia Protocol Glucagon (Glucagen Diagnostic Kit) 0 mg IM .STAT PRN; Protocol PRN Reason: Hypoglycemia Protocol Guaifenesin/Dextromethorphan (Robitussin Dm) 10 ml PO Q4H PRN PRN Reason: Cough and congestion Last Admin: 02/25/18 23:18 Dose: 10 ml Azithromycin 500 mg/ Sodium (Chloride) 250 mls @ 250 mls/hr IVPB DAILY [facility] PRN Reason: Protocol Ceftriaxone Sodium 1 gm/ (Sodium Chloride) 100 mls @ 100 mls/hr IVPB DAILY [facility] PRN Reason: Protocol Dextrose (Dextrose 5% In Water 1000 Ml) 1,000 mls @ 0 mls/hr IV .Q0M PRN; Protocol; Per Protocol PRN Reason: Hypoglycemia Protocol Insulin Human Regular (Novolin R) 0 unit SC ACHS [facility] PRN Reason: Protocol Last Admin: 02/25/18 21:46 Dose: Not Given Losartan Potassium (Cozaar) 100 mg PO DAILY [facility] Methylprednisolone (Solu-Medrol) 40 mg IVP Q8H [facility] Last Admin: 02/26/18 03:30 Dose: 40 mg Multivitamins (Hexavitamin) 1 tab PO DAILY [facility] Pantoprazole Sodium (Protonix Ec Tab) 40 mg PO DAILY [facility] Last Admin: 02/25/18 14:25 Dose: 40 mg Rivaroxaban (Xarelto) 20 mg PO DAILY [facility] - Labs Labs: 02/25/18 11:36 02/25/18 11:36 - Constitutional Appears: Non-toxic, No Acute Distress - Head Exam Head Exam: ATRAUMATIC, NORMAL INSPECTION - Eye Exam Eye Exam: EOMI, PERRL Pupil Exam: NORMAL ACCOMODATION - ENT Exam ENT Exam: Mucous Membranes Moist - Respiratory Exam Respiratory Exam: Rhonchi, Wheezes, NORMAL BREATHING PATTERN. absent: Accessory Muscle Use, Respiratory Distress - Cardiovascular Exam Cardiovascular Exam: REGULAR RHYTHM, +S1, +S2. absent: JVD - GI/Abdominal Exam GI & Abdominal Exam: Soft, Normal Bowel Sounds. absent: Distended, Firm, Guarding, Tenderness - Extremities Exam Extremities Exam: Normal Inspection. absent: Calf Tenderness, Pedal Edema - Back Exam Back Exam: NORMAL INSPECTION. absent: CVA tenderness (L), CVA tenderness (R), paraspinal tenderness - Neurological Exam Neurological Exam: Alert, Awake, CN II-XII Intact, Oriented x3 - Psychiatric Exam Psychiatric exam: Normal Affect, Normal Mood Assessment and Plan - Assessment and Plan (Free Text) Assessment: Dyspnea Improving - reports history of cough for past week, is afebrile, no leukocytosis , patient denies COPD history but chest xray appears to show hyperinflation Chest xray 02/25: no interval acute cardiopulmonary disease. median sternotomy reiterated (see full report) Chest CT 02/25 - no evidence of PE, 5mm noncalcifid nodule at right base, unchanged from prior study (09/25/17) Solumedrol 40mg IVP q8h Rocephin 1gram IVPB daily and azithromycin 500mg IVPB daily (started 02/25) mycoplasma, legionella, strep pneumo: negative procalcitonin 0.05 Pro BNP 157 guaifenesin/ DM 10mg PO q4prn cough Anemia - likely secondary to iron deficiency HgB 8.5 (MCV 81.9) Retic count 1.5 Fe 51, TIBC 390, %Sat 13, Ferritin 30 f/u B12, folate, stool occult Dr. Stauffer consulted - help appreciated --> will hold xarelto until after colonoscopy/endoscopy. Consider IVF placement. Pulmonary Embolism Was diagnosed with pulmonary embolus in 09/2017 and was started on Xarelto 15mg PO BID, however patient only took medication for one month per pharmacy will hold xarelto until after colonoscopy/endoscopy. Consider IVF placement due to anemia. CTA 02/25 negative for PE Hypertension Losartan 100mg PO daily Norvasc 10mg daily PO daily Low sodium diet Diabetes Home metformin 500mg BID held for IV contrast for CTA, will resume outpatient Insulin sliding scale Accuchecks ACHS hypoglycemia protocol Chest pain Resolved - likely pleuritic KEREN negative x 2 Elevated lactate Resolved patient presented with tachycardia and initial lactate of 2.2 patent afebrile with no other SIRS possible source of infection is respiratory due to history of productive cough- patient being covered with azithromycin and rocephin repeat lactate drawn 2 hours after initial with result of 1.7 Prophylactic measure Protonix 40mg PO daily (due to steroid use) SCDs CC/low sodium/heart healthy diet PT eval - Patient is ambulating All management per Dr. Larson
[2018-02-26 07:27] LABS: BASO % 0.1 % (0.0-2.0); HEMOGLOBIN 8.5 g/dL (12.0-18.0); LYMPH # 0.7 K/uL (1.0-4.3); LYMPH % 9.7 % (20.0-40.0); MEAN CELL VOLUME 81.9 fL (80.0-94.0); MEAN CORPUSCULAR HEMOGLOBIN 27.3 pg (27.0-31.0); MEAN CORPUSCULAR HGB CONC 33.4 g/dL (33.0-37.0); MEAN PLATELET VOLUME 7.6 fL (7.2-11.7); MONO # 0.1 K/uL (0.0-0.8); MONO % 0.8 % (0.0-10.0); NEUT % 89.4 % (50.0-75.0); NRBC % 0.1 % (0.0-2.0); PLATELET COUNT 206 K/uL (130-400); WHITE BLOOD COUNT 6.7 K/uL (4.8-10.8)
[2018-02-26 07:36] LABS: ALB/GLOB RATIO 1.2 (1.0-2.1); ALT/SGPT 25 U/L (21-72); AST/SGOT 26 U/L (17-59); BLOOD UREA NITROGEN 22 mg/dL (9-20); CALCIUM 9.6 mg/dl (8.6-10.4); GFR NON-AFRICAN AMERICAN > 60
[2018-02-26] MEDS: (Novolin R) Insulin Human Regular 100 units/ml vial SC SCH ×4 (08:13→21:40)
[2018-02-26] MEDS: Pantoprazole 40 mg EC Tab PO SCH (09:13)
[2018-02-26] MEDS: Multiple Vitamins Tab PO SCH (09:13)
[2018-02-26] MEDS: guaiFENesin DM 200 mg-20 mg/10 ml UD PO PRN ×2 (09:18→15:09)
[2018-02-26 10:50] LABS: BANDS 2 % (0-2); LYMPHOCYTE 9 % (20-40); NEUTROPHIL 89 % (50-75); TOTAL CELLS COUNTED 100
[2018-02-26 10:51] LABS: ANISOCYTOSIS MODERATE; HYPOCHROMIC SLIGHT; PLATELET ESTIMATE NORMAL (NORMAL)
[2018-02-26 10:52] LABS: BURR CELLS SLIGHT; OVALOCYTES SLIGHT; POIKILOCYTOSIS SLIGHT; SCHISTOCYTES SLIGHT
[2018-02-26] MEDS: Azithromycin 500 MG in Sodium Chloride 0.9% 250 ML IVPB SCH ×2 (10:55→11:44)
[2018-02-26] MEDS ORDERED: Ferric Sodium Gluconat Complex 62.5 mg/5 ml Vial IVPB SCH (11:15)
[2018-02-26] MEDS: Ferric Sodium Gluconat Complex 125 MG in Sodium Chloride 0.9% 100 ML IVPB SCH (14:00)
[2018-02-26 14:16] LABS: INR 2.6; PROTHROMBIN TIME 28.5 SECONDS (9.7-12.2)
[2018-02-27] MEDS: MethylPREDNISolone 40 mg Vial IVP SCH ×2 (03:04→11:39)
[2018-02-27] MEDS: (Novolin R) Insulin Human Regular 100 units/ml vial SC SCH ×4 (08:35→22:05)
[2018-02-27] MEDS: Multiple Vitamins Tab PO SCH (10:04)
[2018-02-27] MEDS: Pantoprazole 40 mg EC Tab PO SCH (10:04)
[2018-02-27] MEDS: Azithromycin 500 MG in Sodium Chloride 0.9% 250 ML IVPB SCH (11:39)
[2018-02-27] MEDS ORDERED: Albuterol-Ipratrop 3 mg / 0.5 (3 ml) UD INH STA (11:56)
[2018-02-27] MEDS ORDERED: Propofol 10 mg/ml Inj (20 ML) ONE (12:44)
[2018-02-27] MEDS ORDERED: Lactated Ringer's 1,000 ML IV ONE (13:15)
[2018-02-27] MEDS ORDERED: Phytonadione 10 mg/ml Inj (Adult) SC ONE ×2 (13:45→15:00)
[2018-02-27] MEDS: Ferric Sodium Gluconat Complex 125 MG in Sodium Chloride 0.9% 100 ML IVPB SCH ×2 (14:20→15:34)
--- NOTE | 2018-02-27 14:20 | CP.PCM.PN ---
Subjective - Date & Time of Evaluation Date of Evaluation: 02/27/18 Time of Evaluation: 08:00 - Subjective Subjective: PGY-2 medicine progress note for Dr. Larson Patient was seen and examined at bedside in the AM. Patient is oriented x2, he states the president is currently Trump but patient could not states the year. Patient denies chest pain, shortness of breath, nausea, vomiting, fever, chills or abdominal pain. Objective - Vital Signs/Intake and Output Vital Signs (last 24 hours): Temp Pulse Resp BP Pulse Ox 99.1 F 99 H 22 155/80 H 99 02/27/18 13:35 02/27/18 13:35 02/27/18 13:35 02/27/18 13:35 02/27/18 13:35 Intake and Output: 02/27/18 02/27/18 06:59 18:59 Intake Total 215 Balance 215 - Medications Medications: Current Medications Albuterol/Ipratropium (Duoneb 3 Mg/0.5 Mg (3 Ml) Ud) 3 ml INH RQ4 PRN PRN Reason: Shortness of Breath Last Admin: 02/26/18 19:11 Dose: 3 ml Amlodipine Besylate (Norvasc) 10 mg PO DAILY [facility] Last Admin: 02/27/18 10:04 Dose: 10 mg Aspirin (Aspirin Chewable) 81 mg PO DAILY [facility]IA Last Admin: 02/27/18 10:04 Dose: 81 mg Bisacodyl (Dulcolax) 10 mg PO ONCE ONE Stop: 02/27/18 15:31 Dextrose (Dextrose 50% Inj) 0 ml IVP .STAT PRN; Protocol PRN Reason: Hypoglycemia Protocol Dextrose (Glutose 15) 0 gm PO .ONCE PRN; Protocol PRN Reason: Hypoglycemia Protocol Glucagon (Glucagen Diagnostic Kit) 0 mg IM .STAT PRN; Protocol PRN Reason: Hypoglycemia Protocol Guaifenesin/Dextromethorphan (Robitussin Dm) 10 ml PO Q4H PRN PRN Reason: Cough and congestion Last Admin: 02/26/18 15:09 Dose: 10 ml Azithromycin 500 mg/ Sodium (Chloride) 250 mls @ 250 mls/hr IVPB DAILY [facility] PRN Reason: Protocol Last Admin: 02/27/18 11:39 Dose: Not Given Ceftriaxone Sodium 1 gm/ (Sodium Chloride) 100 mls @ 100 mls/hr IVPB DAILY [facility]IA PRN Reason: Protocol Last Admin: 02/27/18 09:55 Dose: 100 mls/hr Dextrose (Dextrose 5% In Water 1000 Ml) 1,000 mls @ 0 mls/hr IV .Q0M PRN; Protocol; Per Protocol PRN Reason: Hypoglycemia Protocol Ferric Sodium Gluconate Complex 125 mg/ Sodium Chloride 110 mls @ 110 mls/hr IVPB Q24H [facility] Stop: 03/06/18 13:01 Last Admin: 02/26/18 14:00 Dose: 110 mls/hr Lactated Ringer's (Lactated Ringer's 500ml) 500 mls @ 10 mls/hr IV .Q24H [facility] Insulin Human Regular (Novolin R) 0 unit SC ACHS [facility] PRN Reason: Protocol Last Admin: 02/27/18 11:35 Dose: Not Given Losartan Potassium (Cozaar) 100 mg PO DAILY [facility] Last Admin: 02/27/18 10:04 Dose: 100 mg Magnesium Citrate (Citrate Of Mag) 60 ml PO ONCE ONE Stop: 02/27/18 16:01 Methylprednisolone (Solu-Medrol) 40 mg IVP Q8H [facility] Last Admin: 02/27/18 11:39 Dose: Not Given Multivitamins (Hexavitamin) 1 tab PO DAILY [facility] Last Admin: 02/27/18 10:04 Dose: 1 tab Pantoprazole Sodium (Protonix Ec Tab) 40 mg PO DAILY [facility] Last Admin: 02/27/18 10:04 Dose: 40 mg Rivaroxaban (Xarelto) 20 mg PO DAILY [facility] Last Admin: 02/26/18 09:13 Dose: 20 mg - Labs Labs: 02/26/18 06:44 02/26/18 06:44 PT 28.5 SECONDS (9.7-12.2) H 02/26/18 14:00 INR 2.6 02/26/18 14:00 APTT 39 SECONDS (21-34) H 02/26/18 14:00 - Constitutional Appears: No Acute Distress - Head Exam Head Exam: ATRAUMATIC, NORMAL INSPECTION - Eye Exam Eye Exam: EOMI, Normal appearance - ENT Exam ENT Exam: Mucous Membranes Moist - Respiratory Exam Respiratory Exam: Decreased Breath Sounds, NORMAL BREATHING PATTERN - Cardiovascular Exam Cardiovascular Exam: REGULAR RHYTHM, +S1, +S2 - GI/Abdominal Exam GI & Abdominal Exam: Soft, Normal Bowel Sounds. absent: Tenderness - Extremities Exam Extremities Exam: Normal Inspection - Neurological Exam Neurological Exam: Alert, Awake, Oriented x3 - Psychiatric Exam Psychiatric exam: Normal Affect - Skin Skin Exam: Normal Color Assessment and Plan - Assessment and Plan (Free Text) Assessment: Anemia - likely secondary to iron deficiency vs. GI bleed HgB 8.5 (MCV 81.9) Retic count 1.5 Fe 51, TIBC 390, %Sat 13, Ferritin 30 - Started IV iron 125mg daily B12 715 stool occult: positive Dr. Stauffer consulted - help appreciated --> will hold xarelto until after colonoscopy/endoscopy. Consider IVF placement. Dyspnea History of COPD Improving - reports history of cough for past week, is afebrile, no leukocytosis , patient denies COPD history but chest xray appears to show hyperinflation Chest xray 02/25: no interval acute cardiopulmonary disease. median sternotomy reiterated (see full report) Chest CT 02/25 - no evidence of PE, 5mm noncalcifid nodule at right base, unchanged from prior study (09/25/17) Solumedrol 40mg IVP q8h Rocephin 1gram IVPB daily and azithromycin 500mg IVPB daily (started 02/25) mycoplasma, legionella, strep pneumo: negative procalcitonin 0.05 Pro BNP 157 guaifenesin/ DM 10mg PO q4prn cough History of Pulmonary Embolism Was diagnosed with pulmonary embolus in 09/2017 and was started on Xarelto 15mg PO BID, however patient only took medication for one month per pharmacy will hold xarelto until after colonoscopy/endoscopy. Consider IVF placement due to anemia. CTA 02/25 negative for PE History of Hypertension Losartan 100mg PO daily Norvasc 10mg daily PO daily Low sodium diet History of Diabetes Home metformin 500mg BID held for IV contrast for CTA, will resume outpatient Insulin sliding scale Accuchecks ACHS hypoglycemia protocol Chest pain Resolved - likely pleuritic KEREN negative x 2 Elevated lactate Resolved patient presented with tachycardia and initial lactate of 2.2 patent afebrile with no other SIRS possible source of infection is respiratory due to history of productive cough- patient being covered with azithromycin and rocephin repeat lactate drawn 2 hours after initial with result of 1.7 Prophylactic measure Protonix 40mg PO daily (due to steroid use) SCDs CC/low sodium/heart healthy diet PT eval - Patient is ambulating All management per Dr. Larson
[2018-02-27] MEDS ORDERED: Bisacodyl 5mg EC Tab PO ONE (15:30)
[2018-02-27] MEDS ORDERED: Magnesium Citrate Oral SOL (300 ml) PO ONE (16:00)
[2018-02-28] MEDS: MethylPREDNISolone 40 mg Vial IVP SCH ×3 (03:17→20:10)
[2018-02-28 07:35] LABS: BASO % 0.2 % (0.0-2.0); HEMOGLOBIN 9.5 g/dL (12.0-18.0); LYMPH # 0.4 K/uL (1.0-4.3); LYMPH % 4.6 % (20.0-40.0); MEAN CELL VOLUME 81.8 fL (80.0-94.0); MEAN CORPUSCULAR HEMOGLOBIN 27.6 pg (27.0-31.0); MEAN CORPUSCULAR HGB CONC 33.7 g/dL (33.0-37.0); MEAN PLATELET VOLUME 7.7 fL (7.2-11.7); MONO # 0.2 K/uL (0.0-0.8); NEUT % 93.2 % (50.0-75.0); NRBC % 0.1 % (0.0-2.0); PLATELET COUNT 244 K/uL (130-400); RBC 3.44 Mil/uL (4.40-5.90); RED CELL DISTRIBUTION WIDTH 22.1 % (11.5-14.5); WHITE BLOOD COUNT 9.6 K/uL (4.8-10.8)
[2018-02-28 07:42] LABS: INR 1.3; PROTHROMBIN TIME 13.7 SECONDS (9.7-12.2)
[2018-02-28 07:58] LABS: ALB/GLOB RATIO 1.4 (1.0-2.1); ALBUMIN 4.1 g/dL (3.5-5.0); ALT/SGPT 33 U/L (21-72); AST/SGOT 25 U/L (17-59); BLOOD UREA NITROGEN 36 mg/dL (9-20); CALCIUM 9.7 mg/dl (8.6-10.4); GFR NON-AFRICAN AMERICAN > 60
[2018-02-28] MEDS: (Novolin R) Insulin Human Regular 100 units/ml vial SC SCH ×4 (09:01→22:07)
[2018-02-28] MEDS: Pantoprazole 40 mg EC Tab PO SCH (10:11)
[2018-02-28] MEDS: Multiple Vitamins Tab PO SCH (10:11)
[2018-02-28] MEDS: Azithromycin 500 MG in Sodium Chloride 0.9% 250 ML IVPB SCH (10:12)
[2018-02-28 10:34] LABS: BANDS 2 % (0-2); LYMPHOCYTE 8 % (20-40); MONOCYTE 1 % (0-10); NEUTROPHIL 89 % (50-75); TOTAL CELLS COUNTED 100
[2018-02-28 10:35] LABS: ANISOCYTOSIS SLIGHT; HYPOCHROMIC SLIGHT; PLATELET ESTIMATE NORMAL (NORMAL); POIKILOCYTOSIS SLIGHT
[2018-02-28 10:36] LABS: OVALOCYTES SLIGHT
[2018-02-28 10:37] LABS: TARGET CELLS SLIGHT
[2018-02-28 10:38] LABS: MICROCYTOSIS SLIGHT
[2018-02-28 10:39] LABS: BURR CELLS SLIGHT
--- NOTE | 2018-02-28 11:31 | PN ---
DATE: 02/28/2018 LOCATION: 352, bed B. SUBJECTIVE: This is an 87-year-old male post upper endoscopy yesterday, seen and examined today without reported significant chest pain, palpitation, shortness breath, chills or fever, but mild abdominal pain on and off with slight abdominal distention. The patient had recently some loss of his appetite, but no reported active bleeding. Most recent lab results today showed hemoglobin of 9.5, hematocrit 28.1, PT of 13.7, with blood glucose level of 169. Cancer markers are still pending. PHYSICAL EXAMINATION: GENERAL: An 87-year-old male. VITAL SIGNS: Afebrile, with pulse of 100, respiratory rate 20-22, blood pressure of 130/64. HEENT: Showed pale, dry oral mucous membranes. Nonicteric sclerae. LUNGS: Few scattered crepitations. Decreased air entry at bases. HEART: Positive S1 and S2. ABDOMEN: Soft. Bowel sounds are present. No mass or organomegaly. No rebound tenderness or guarding, but abdominal distention with mild left-sided tenderness and midepigastric area tenderness noted. NEUROLOGIC: No reported new neurological deficits, sensory or motor. The patient experienced some episodes of slight shortness of breath during my physical examination with cough. IMPRESSION: 1. Anemia, to rule out lower gastrointestinal blood loss. 2. Status post upper endoscopy with evidence of gastritis. 3. Known history of chronic obstructive pulmonary disease, bronchitis, hypertension, diabetes mellitus, coronary artery disease, with status post coronary artery bypass graft, as well as status post cholecystectomy. SUGGESTIONS: 1. Agree with your plan. 2. Follow up cancer markers. 3. The patient for colonoscopy after adequate preparation. 4. Further recommendations to follow. Naren Sepulveda MD
[2018-02-28] MEDS: Ferric Sodium Gluconat Complex 125 MG in Sodium Chloride 0.9% 100 ML IVPB SCH (13:28)
[2018-02-28] MEDS: guaiFENesin DM 200 mg-20 mg/10 ml UD PO PRN (13:32)
--- NOTE | 2018-02-28 23:05 | CARD ---
APPROVED REPORT Date of service: 02/25/2018 EKG Measurement Heart [id number] <Conclusion> Sinus rhythm with 1st degree AV block Left axis deviation Incomplete right bundle branch block Abnormal ECG
[2018-03-01] MEDS: MethylPREDNISolone 40 mg Vial IVP SCH ×4 (03:16→21:39)
--- NOTE | 2018-03-01 04:42 | CON ---
DATE: 02/26/[address] Sepulveda to Dr. Isidro Larson. REASON FOR CONSULTATION: I was called for a GI consultation by the admitting MD. The patient is seen and fully examined on 02/26/2018 in the presence of Dr. Larson as well as the staff in the floor. The entire chart is reviewed including, but not limited to most recent lab and radiology study results, current and the previous medication lists, current and the previous medical events, allergy to medication list as well as all available medical nursing notes. Case discussed with the staff at length. HISTORY OF PRESENT ILLNESS: This is an 87-year-old male who was admitted to hospital through the emergency room with a main complaint of shortness of breath, lower extremity edematous changes, dyspepsia, nausea, generalized weakness and malaise, but no reported active bleeding, no actual chest pain or palpitation, but chest congestion. No chills or fever. PAST MEDICAL HISTORY: Including, but not limited to, 1. Hypertension. 2. Diabetes mellitus. 3. COPD. 4. Coronary artery disease with status post CABG. 5. Cholelithiasis with status post cholecystectomy. 6. Peptic ulcer disease by history. 7. Never had colonoscopy before as per the patient's statement. CURRENT MEDICATIONS: Post-admission medication lists were reviewed. FAMILY HISTORY: Noncontributory. SOCIAL HISTORY: Denied any recent history of cigarette smoking or alcohol intake. ALLERGIES TO MEDICATIONS: UNCLEAR. LABORATORY DATA: Initial blood workup post-admission showed hemoglobin of 9.3, hematocrit 29.2. His EKG was reported to have right bundle-branch block. PHYSICAL EXAMINATION: GENERAL: An 87-year-old male, awake, alert, oriented. VITAL SIGNS: Afebrile at the time I saw him with a blood pressure of 130/76, respiratory rate 20 to 24, heart rate of 96. HEENT: Showed pale, dry oral mucous membrane. Nonicteric sclerae. LUNGS: Few scattered crepitation. Decreased air entry at bases with mild bilateral rales. LYMPH NODES: No lymphadenitis or lymphadenopathy. HEART: Positive S1 and S2 with increased rate. ABDOMEN: Soft with mild generalized tenderness, slightly distended. Bowel sounds are present. No mass or organomegaly. No rebound tenderness or guarding. RECTAL: The patient refused. EXTREMITIES: With mild lower extremity edematous changes. No clubbing or cyanosis. NEUROLOGIC: No reported new neurological deficits, sensory or motor. No reported new focal deficits. Peripheral pulses are decreased bilaterally. IMPRESSION: 1. Anemia, to rule out gastrointestinal blood loss, upper versus lower versus anemia secondary to chronic disease. 2. To rule out occult gastrointestinal malignancy. 3. Multiple past medical histories as mentioned above. SUGGESTIONS: 1. Agree with your plan. 2. Cancer markers. Repeat stool for occult blood. 3. Proton pump inhibitors. 4. Sectional abdominal and pelvic CAT scan. 5. Endoscopic evaluation of the GI tract when the patient is more stable clinically. 6. Further recommendation to follow. Thank you for letting me to participate in your patient's case management. Naren Sepulveda MD
[2018-03-01] MEDS: (Novolin R) Insulin Human Regular 100 units/ml vial SC SCH ×4 (08:13→21:38)
--- NOTE | 2018-03-01 08:29 | CARD ---
APPROVED REPORT Date of service: 02/25/2018 EKG Measurement Heart [id number] <Conclusion> Sinus tachycardia Left axis deviation Incomplete right bundle branch block Abnormal ECG
[2018-03-01] MEDS: Pantoprazole 40 mg EC Tab PO SCH (09:34)
[2018-03-01] MEDS: Multiple Vitamins Tab PO SCH (09:34)
[2018-03-01] MEDS: Azithromycin 500 MG in Sodium Chloride 0.9% 250 ML IVPB SCH (09:35)
[2018-03-01] MEDS ORDERED: Peg-Electrolyte Oral Soln 4L (Golytely) PO ONE (11:00)
[2018-03-01] MEDS: Ferric Sodium Gluconat Complex 125 MG in Sodium Chloride 0.9% 100 ML IVPB SCH (12:18)
--- NOTE | 2018-03-01 12:26 | PN ---
DATE: 03/01/2018 LOCATION: 352, bed B. SUBJECTIVE: This is an 87-year-old male who appeared to be awake, alert, and oriented without reported evidence of active bleeding. No reported nausea or vomiting. The entire chart is reviewed including but not limited to the most recent lab and radiology study results, current and the previous medication list, current and the previous medical events. Today's lab showed blood glucose level of 205. Rest of lab results still pending. However, the patient still has low hemoglobin and hematocrit, for which the patient is to be scheduled for colonoscopy at a.m. Case discussed with Dr. Larson at length. PHYSICAL EXAMINATION: GENERAL: An 87-year-old male, awake, alert, and oriented. VITAL SIGNS: Afebrile, with pulse of 90, respiratory rate 20-22, blood pressure 142/70. HEENT: Showed pale, dry oral mucous membranes. Nonicteric sclerae. LUNGS: Few scattered crepitations. Decreased air entry at bases. HEART: Positive S1 and S2. ABDOMEN: Soft. Bowel sounds are present with slight generalized tenderness. No mass or organomegaly. No rebound tenderness or guarding. EXTREMITIES: Without significant clubbing, cyanosis, or edema. NEUROLOGIC: No reported new neurological deficits, sensory or motor. IMPRESSION: 1. Anemia, to rule out lower gastrointestinal blood loss. 2. Reexacerbation of peptic ulcer disease with gastritis. 3. Multiple past medical history including mainly, but not limited to chronic obstructive pulmonary disease, poorly controlled diabetes mellitus, hypertension, coronary artery disease, with status post coronary artery bypass graft, as well as status post cholecystectomy. SUGGESTIONS: 1. Continue current management. 2. The patient is scheduled for colonoscopy at a.m. Naren Sepulveda MD
[2018-03-01] MEDS: Lactated Ringer's 500 ML IV SCH (13:57)
[2018-03-01] MEDS ORDERED: Bisacodyl 5mg EC Tab PO ONE (17:00)
[2018-03-02] MEDS: MethylPREDNISolone 40 mg Vial IVP SCH ×2 (02:36→19:27)
--- NOTE | 2018-03-02 07:45 | PN ---
DATE: 03/01/2018 The patient needs supportive care. Follow H and H. Isidro Larson MD
--- NOTE | 2018-03-02 07:48 | HP ---
HISTORY OF PRESENT ILLNESS: The patient is an 87-year-old male, admitted to the hospital with chief complaint of shortness of breath, weakness, fatigue, tiredness. The patient was found to have severe anemia, came to the ER, advised admission. The patient ____ , took medication only for 1 month . PHYSICAL EXAMINATION: GENERAL: The patient is awake, alert, and oriented. VITAL SIGNS: Temperature 98, pulse 90. HEENT: Within normal limits. NECK: Supple. CHEST: Symmetrical. HEART: Regular. ABDOMEN: Soft. EXTREMITIES: No edema. IMPRESSION: The patient suffers from gastrointestinal bleeding, chronic obstructive pulmonary disease. PLAN: The patient to get bedrest, supportive care. Isidro Larson MD
[2018-03-02] MEDS: (Novolin R) Insulin Human Regular 100 units/ml vial SC SCH ×4 (08:12→22:01)
[2018-03-02] MEDS ORDERED: Propofol 10 mg/ml Inj (20 ML) ONE (08:27)
--- NOTE | 2018-03-02 09:45 | CP.PCM.PN ---
Subjective - Date & Time of Evaluation Date of Evaluation: 03/02/18 Time of Evaluation: 13:05 - Subjective Subjective: Medicine progress note for Dr. Larson's service Patient seen and examined after colonoscopy. Patient resting in bed comfortably with at bedside. Patient tolerating diet s/p procedure. Patient reports breathing has improved since admission. Patient states he is tolerating his diet well. Objective - Vital Signs/Intake and Output Vital Signs (last 24 hours): Temp Pulse Resp BP Pulse Ox 98.3 F 87 18 160/88 H 100 03/02/18 08:24 03/02/18 09:21 03/02/18 09:21 03/02/18 09:21 03/02/18 09:21 Intake and Output: 03/02/18 03/02/18 06:59 18:59 Intake Total 3000 350 Balance 3000 350 - Medications Medications: Current Medications Albuterol/Ipratropium (Duoneb 3 Mg/0.5 Mg (3 Ml) Ud) 3 ml INH RQ4 PRN PRN Reason: Shortness of Breath Last Admin: 02/26/18 19:11 Dose: 3 ml Amlodipine Besylate (Norvasc) 10 mg PO DAILY GARCIA Last Admin: 03/01/18 09:34 Dose: 10 mg Aspirin (Aspirin Chewable) 81 mg PO DAILY [facility]IA Last Admin: 03/01/18 09:34 Dose: 81 mg Dextrose (Dextrose 50% Inj) 0 ml IVP .STAT PRN; Protocol PRN Reason: Hypoglycemia Protocol Dextrose (Glutose 15) 0 gm PO .ONCE PRN; Protocol PRN Reason: Hypoglycemia Protocol Glucagon (Glucagen Diagnostic Kit) 0 mg IM .STAT PRN; Protocol PRN Reason: Hypoglycemia Protocol Guaifenesin/Dextromethorphan (Robitussin Dm) 10 ml PO Q4H PRN PRN Reason: Cough and congestion Last Admin: 02/28/18 13:32 Dose: 10 ml Hydrocortisone (Anusol-Hc) 100 gm ND BID [facility] Stop: 03/04/18 23:59 Ferric Sodium Gluconate Complex 125 mg/ Sodium Chloride 110 mls @ 110 mls/hr IVPB Q24H [facility] Stop: 03/06/18 13:01 Last Admin: 03/01/18 12:18 Dose: 110 mls/hr Lactated Ringer's (Lactated Ringer's 500ml) 500 mls @ 10 mls/hr IV .Q24H [facility] Last Admin: 03/01/18 13:57 Dose: Not Given Insulin Human Regular (Novolin R) [address] [facility] PRN Reason: Protocol Last Admin: 03/02/18 08:12 Dose: Not Given Losartan Potassium (Cozaar) [address] [facility] Last Admin: 03/01/18 09:34 Dose: 100 mg Methylprednisolone (Solu-Medrol) [address] [facility] Metoclopramide HCl (Reglan) [address] [facility] Last Admin: 03/02/18 02:35 Dose: 5 mg Multivitamins (Hexavitamin) [address] [facility] Last Admin: 03/01/18 09:34 Dose: 1 tab Pantoprazole Sodium (Protonix Ec Tab) [address] [facility] Last Admin: 03/01/18 09:34 Dose: 40 mg Rivaroxaban (Xarelto) [address] [facility] Last Admin: 02/26/18 09:13 Dose: 20 mg - Labs Labs: 02/28/18 07:16 02/28/18 07:16 PT 13.7 SECONDS (9.7-12.2) H D 02/28/18 07:16 INR 1.3 D 02/28/18 07:16 APTT 29 SECONDS (21-34) D 02/28/18 07:16 - Constitutional Appears: No Acute Distress - Head Exam Head Exam: ATRAUMATIC, NORMOCEPHALIC - Eye Exam Eye Exam: EOMI - ENT Exam ENT Exam: Mucous Membranes Moist - Respiratory Exam Respiratory Exam: Wheezes (minimal on right), NORMAL BREATHING PATTERN. absent : Respiratory Distress - Cardiovascular Exam Cardiovascular Exam: +S1, +S2 - GI/Abdominal Exam GI & Abdominal Exam: Soft, Normal Bowel Sounds. absent: Tenderness - Extremities Exam Extremities Exam: Normal Inspection. absent: Pedal Edema - Neurological Exam Neurological Exam: Alert, Awake - Skin Skin Exam: Warm Assessment and Plan - Assessment and Plan (Free Text) Assessment: Anemia - likely secondary to iron deficiency vs. GI bleed HgB 9.1, baseline from prior admission is closer to 11 Retic index 0.9, hypoproliferative response Fe 51, TIBC 390, %Sat 13, Ferritin 30 - Started IV iron 125mg daily B12 715 stool occult: positive Dr. Stauffer consulted - help appreciated --> will hold xarelto until after colonoscopy/endoscopy. Consider IVF placement. 02/27/18: endoscopy report: LA grade A reflux esophagitis. mediam sized hiatal hernia. use omeprazole 40mg PO daily for 8 weeks. 03/02/18: colonoscopy report:non-bleeding external and internal hemorrhoids, large. moderately congested mucosa in descending colon. multiple small and large-mouthed diverticula in entire colon. no evidence of diverticular bleed. high fiber diet indefinitely. await pathology results, repeat in 5 years. follow up in GI office in 6 weeks. - start anusol HC 100g ND BID Dyspnea History of COPD Improving - reports history of cough for past week, is afebrile, no leukocytosis , patient denies COPD history but chest xray appears to show hyperinflation Chest xray 02/25: no interval acute cardiopulmonary disease. median sternotomy reiterated (see full report) Chest CT 02/25 - no evidence of PE, 5mm noncalcifid nodule at right base, unchanged from prior study (09/25/17) Solumedrol 40mg IVP q12h Rocephin 1gram IVPB daily and azithromycin 500mg IVPB daily (started 02/25)- stopped 03/01 mycoplasma, legionella, strep pneumo: negative procalcitonin 0.05 Pro BNP 157 guaifenesin/ DM 10mg PO q4prn cough History of Pulmonary Embolism Was diagnosed with pulmonary embolus in 09/2017 and was started on Xarelto 15mg PO BID, however patient only took medication for one month per pharmacy will hold xarelto until after colonoscopy/endoscopy. Consider IVF placement due to anemia. CTA 02/25 negative for PE History of Hypertension Losartan 100mg PO daily Norvasc 10mg daily PO daily Low sodium diet History of Diabetes Home metformin 500mg BID held for IV contrast for CTA, will resume outpatient Insulin sliding scale Accuchecks ACHS hypoglycemia protocol Chest pain Resolved - likely pleuritic KEREN negative x 2 Elevated lactate Resolved patient presented with tachycardia and initial lactate of 2.2 patent afebrile with no other SIRS possible source of infection is respiratory due to history of productive cough- patient being covered with azithromycin and rocephin repeat lactate drawn 2 hours after initial with result of 1.7 Prophylactic measure Protonix 40mg PO daily as recommended by EGD report SCDs CC/low sodium/heart healthy diet PT eval - Patient is ambulating, recommend home pT All management per Dr. Larson
[2018-03-02 10:44] VITALS: RESP 20
[2018-03-02] MEDS: Pantoprazole 40 mg EC Tab PO SCH (11:34)
[2018-03-02] MEDS: Multiple Vitamins Tab PO SCH (11:34)
[2018-03-02] MEDS: Hydrocortisone 2.5% Rectal Cream(30 gm) PR SCH ×2 (11:35→17:28)
[2018-03-02 12:08] LABS: BASO % 0.3 % (0.0-2.0); HEMOGLOBIN 9.1 g/dL (12.0-18.0); LYMPH # 0.6 K/uL (1.0-4.3); LYMPH % 7.4 % (20.0-40.0); MEAN CELL VOLUME 83.4 fL (80.0-94.0); MEAN CORPUSCULAR HEMOGLOBIN 27.8 pg (27.0-31.0); MEAN CORPUSCULAR HGB CONC 33.3 g/dL (33.0-37.0); MONO # 0.2 K/uL (0.0-0.8); NEUT # 6.9 K/uL (1.8-7.0); NEUT % 89.3 % (50.0-75.0); NRBC % 0.3 % (0.0-2.0); PLATELET COUNT 222 K/uL (130-400); RBC 3.29 Mil/uL (4.40-5.90); RED CELL DISTRIBUTION WIDTH 21.7 % (11.5-14.5); WHITE BLOOD COUNT 7.7 K/uL (4.8-10.8)
[2018-03-02 12:21] LABS: ALB/GLOB RATIO 1.2 (1.0-2.1); ALBUMIN 3.7 g/dL (3.5-5.0); ALT/SGPT 59 U/L (21-72); AST/SGOT 30 U/L (17-59); BLOOD UREA NITROGEN 23 mg/dL (9-20); CALCIUM 8.8 mg/dl (8.6-10.4); GFR NON-AFRICAN AMERICAN > 60
[2018-03-02 12:53] LABS: ANISOCYTOSIS MODERATE; BANDS 2 % (0-2); LYMPHOCYTE 9 % (20-40); MONOCYTE 3 % (0-10); NEUTROPHIL 86 % (50-75); PLATELET ESTIMATE NORMAL (NORMAL); TOTAL CELLS COUNTED 100
[2018-03-02 12:54] LABS: HYPOCHROMIC SLIGHT; OVALOCYTES SLIGHT
[2018-03-02] MEDS: Ferric Sodium Gluconat Complex 125 MG in Sodium Chloride 0.9% 100 ML IVPB SCH (13:04)
[2018-03-02] MEDS: Lactated Ringer's 500 ML IV SCH (15:38)
[2018-03-02 18:19] VITALS: PULSE 91
[2018-03-03 07:57] VITALS: BP 158/77; TEMP 98.4; O2SAT 97
[2018-03-03 08:01] LABS: HEMOGLOBIN 8.9 g/dL (12.0-18.0); LYMPH # 0.5 K/uL (1.0-4.3); LYMPH % 7.5 % (20.0-40.0); MEAN CELL VOLUME 82.5 fL (80.0-94.0); MEAN CORPUSCULAR HEMOGLOBIN 27.6 pg (27.0-31.0); MEAN CORPUSCULAR HGB CONC 33.5 g/dL (33.0-37.0); MEAN PLATELET VOLUME 7.7 fL (7.2-11.7); MONO # 0.5 K/uL (0.0-0.8); MONO % 6.8 % (0.0-10.0); NEUT # 6.2 K/uL (1.8-7.0); NEUT % 85.7 % (50.0-75.0); NRBC % 0.1 % (0.0-2.0); PLATELET COUNT 204 K/uL (130-400); RBC 3.21 Mil/uL (4.40-5.90); RED CELL DISTRIBUTION WIDTH 21.9 % (11.5-14.5); WHITE BLOOD COUNT 7.2 K/uL (4.8-10.8)
[2018-03-03 08:20] LABS: ALB/GLOB RATIO 1.3 (1.0-2.1); ALBUMIN 3.4 g/dL (3.5-5.0); ALT/SGPT 50 U/L (21-72); AST/SGOT 19 U/L (17-59); BLOOD UREA NITROGEN 28 mg/dL (9-20); CALCIUM 8.6 mg/dl (8.6-10.4); GFR NON-AFRICAN AMERICAN > 60
[2018-03-03] MEDS: MethylPREDNISolone 40 mg Vial IVP SCH (08:30)
[2018-03-03] MEDS: (Novolin R) Insulin Human Regular 100 units/ml vial SC SCH ×2 (08:30→12:30)
[2018-03-03 09:17] LABS: ANISOCYTOSIS SLIGHT; BANDS 1 % (0-2); HYPOCHROMIC SLIGHT; LYMPHOCYTE 5 % (20-40); MONOCYTE 4 % (0-10); NEUTROPHIL 90 % (50-75); PLATELET ESTIMATE NORMAL (NORMAL); POLYCHROMIC SLIGHT; TOTAL CELLS COUNTED 100
[2018-03-03 09:18] LABS: OVALOCYTES SLIGHT
[2018-03-03 09:19] LABS: SCHISTOCYTES SLIGHT
[2018-03-03] MEDS: Hydrocortisone 2.5% Rectal Cream(30 gm) PR SCH (09:41)
[2018-03-03] MEDS: Multiple Vitamins Tab PO SCH (09:42)
[2018-03-03] MEDS: Pantoprazole 40 mg EC Tab PO SCH (09:42)
--- NOTE | 2018-03-03 11:31 | CP.PCM.PN ---
Subjective - Date & Time of Evaluation Date of Evaluation: 03/03/18 Time of Evaluation: 09:00 - Subjective Subjective: Progress Note for Dr. Larson's Service Patient seen and examined at bedside. Patient reports his breathing has improved. Denied fever, chills,headache, chest pain, shortness of breath at rest , abdominal pain, n/v/d/c, or urinary symptoms. Objective - Vital Signs/Intake and Output Vital Signs (last 24 hours): Temp Pulse Resp BP Pulse Ox 98.4 F 91 H 20 158/77 H 97 03/03/18 07:54 03/03/18 07:54 03/03/18 07:54 03/03/18 07:54 03/03/18 07:54 Intake and Output: 03/03/18 03/03/18 06:59 18:59 Intake Total 480 Balance 480 - Medications Medications: Current Medications Albuterol/Ipratropium (Duoneb 3 Mg/0.5 Mg (3 Ml) Ud) 3 ml INH RQ4 PRN PRN Reason: Shortness of Breath Last Admin: 02/26/18 19:11 Dose: 3 ml Amlodipine Besylate (Norvasc) 10 mg PO DAILY GARCIA Last Admin: 03/03/18 09:42 Dose: 10 mg Aspirin (Aspirin Chewable) 81 mg PO DAILY GARCIA Last Admin: 03/03/18 09:42 Dose: 81 mg Dextrose (Dextrose 50% Inj) 0 ml IVP .STAT PRN; Protocol PRN Reason: Hypoglycemia Protocol Dextrose (Glutose 15) 0 gm PO .ONCE PRN; Protocol PRN Reason: Hypoglycemia Protocol Glucagon (Glucagen Diagnostic Kit) 0 mg IM .STAT PRN; Protocol PRN Reason: Hypoglycemia Protocol Guaifenesin/Dextromethorphan (Robitussin Dm) 10 ml PO Q4H PRN PRN Reason: Cough and congestion Last Admin: 02/28/18 13:32 Dose: 10 ml Hydrocortisone (Anusol-Hc) 100 gm AK BID GARCIA Stop: 03/04/18 23:59 Last Admin: 03/03/18 09:41 Dose: 1 applic Ferric Sodium Gluconate Complex 125 mg/ Sodium Chloride 110 mls @ 110 mls/hr IVPB Q24H GARCIA Stop: 03/06/18 13:01 Last Admin: 03/02/18 13:04 Dose: 110 mls/hr Insulin Human Regular (Novolin R) 0 unit SC ACHS [facility] PRN Reason: Protocol Last Admin: 03/03/18 08:30 Dose: 1 unit Losartan Potassium (Cozaar) 100 mg PO DAILY [facility] Last Admin: 03/03/18 09:42 Dose: 100 mg Methylprednisolone (Solu-Medrol) 40 mg IVP Q12H [facility] Last Admin: 03/03/18 08:30 Dose: 40 mg Metoclopramide HCl (Reglan) 5 mg IVP Q6H [facility] Last Admin: 03/03/18 09:19 Dose: 5 mg Multivitamins (Hexavitamin) 1 tab PO DAILY [facility] Last Admin: 03/03/18 09:42 Dose: 1 tab Pantoprazole Sodium (Protonix Ec Tab) 40 mg PO DAILY [facility] Last Admin: 03/03/18 09:42 Dose: 40 mg Rivaroxaban (Xarelto) 20 mg PO DAILY [facility] Last Admin: 02/26/18 09:13 Dose: 20 mg - Labs Labs: 03/03/18 07:50 03/03/18 07:50 PT 13.7 SECONDS (9.7-12.2) H D 02/28/18 07:16 INR 1.3 D 02/28/18 07:16 APTT 29 SECONDS (21-34) D 02/28/18 07:16 - Additional Findings Additional findings: - Constitutional Appears: No Acute Distress - Head Exam Head Exam: ATRAUMATIC, NORMOCEPHALIC - Eye Exam Eye Exam: EOMI - ENT Exam ENT Exam: Mucous Membranes Moist - Respiratory Exam Respiratory Exam: Wheezes (minimal on right), NORMAL BREATHING PATTERN. absent : Respiratory Distress - Cardiovascular Exam Cardiovascular Exam: +S1, +S2 - GI/Abdominal Exam GI & Abdominal Exam: Soft, Normal Bowel Sounds. absent: Tenderness - Extremities Exam Extremities Exam: Normal Inspection. absent: Pedal Edema - Neurological Exam Neurological Exam: Alert, Awake - Skin Skin Exam: Warm Assessment and Plan - Assessment and Plan (Free Text) Plan: Anemia - likely secondary to iron deficiency vs. GI bleed HgB 9.1, baseline from prior admission is closer to 11 Retic index 0.9, hypoproliferative response Fe 51, TIBC 390, %Sat 13, Ferritin 30 - Started IV iron 125mg daily, will discharge with PO iron B12 715 stool occult: positive Dr. Stauffer consulted - help appreciated --> will hold xarelto until after colonoscopy/endoscopy. Consider IVF placement. 02/27/18: endoscopy report: LA grade A reflux esophagitis. mediam sized hiatal hernia. use omeprazole 40mg PO daily for 8 weeks. 03/02/18: colonoscopy report:non-bleeding external and internal hemorrhoids, large. moderately congested mucosa in descending colon. multiple small and large-mouthed diverticula in entire colon. no evidence of diverticular bleed. high fiber diet indefinitely. await pathology results, repeat in 5 years. follow up in GI office in 6 weeks. - start anusol HC 100g AK BID Dyspnea History of COPD Improving - reports history of cough for past week, is afebrile, no leukocytosis , patient denies COPD history but chest xray appears to show hyperinflation Chest xray 02/25: no interval acute cardiopulmonary disease. median sternotomy reiterated (see full report) Chest CT 02/25 - no evidence of PE, 5mm noncalcifid nodule at right base, unchanged from prior study (09/25/17) Solumedrol 40mg IVP q12h Rocephin 1gram IVPB daily and azithromycin 500mg IVPB daily (started 02/25)- stopped 03/01 mycoplasma, legionella, strep pneumo: negative procalcitonin 0.05 Pro BNP 157 guaifenesin/ DM 10mg PO q4prn cough History of Pulmonary Embolism Was diagnosed with pulmonary embolus in 09/2017 and was started on Xarelto 20mg PO daily, however patient only took medication for one month per pharmacy will hold xarelto until after colonoscopy/endoscopy. Consider IVF placement due to anemia. CTA 02/25 negative for PE History of Hypertension Losartan 100mg PO daily Norvasc 10mg daily PO daily Low sodium diet History of Diabetes Home metformin 500mg BID held for IV contrast for CTA, will resume outpatient Insulin sliding scale Accuchecks ACHS hypoglycemia protocol Chest pain, resolved Resolved - likely pleuritic KEREN negative x 2 Elevated lactate, resolved patient presented with tachycardia and initial lactate of 2.2 patent afebrile with no other SIRS possible source of infection is respiratory due to history of productive cough- patient being covered with azithromycin and rocephin repeat lactate drawn 2 hours after initial with result of 1.7 Prophylactic measure Protonix 40mg PO daily as recommended by EGD report SCDs CC/low sodium/heart healthy diet PT eval - Patient is ambulating, recommend home pT All management per Dr. Larson Disposition: Patient is medically stable for discharge. Patient is to continue medications as currently prescribed. Please follow up with you primary care doctor for refills to these medications as we only provided enough for 1 month. So please see your primary care doctor within 1-2 weeks for routine follow up care and for medication refills. You will also need to discuss with him if you should continue with Xarelto (the blood thinner for your history of a clot in your lung, since your blood level is low; may need to have a filter placed in your main artery to prevent clots from going to your lungs. Please discuss this with both your primary care doctor and Dr. Stauffer (stomach doctor)). Please follow up with the stomach doctor (Dr. Stauffer) within 2-4 weeks for the results of your biopsy from the EGD and colonoscopy. Please take care and be well! ---Leidy Leahy DO, PGY2
--- NOTE | 2018-03-03 13:51 | PN ---
DATE: 03/03/2018 LOCATION: 352, bed B. SUBJECTIVE: This is an 87-year-old male seen early and examined in rounds without significant clinical changes or reported active bleeding, post upper and lower endoscopy, tolerating oral intake well without any complaint of chest pain, palpitation and improvement of his respiratory status since the admission. The entire chart is reviewed including but not limited to the most recent lab and radiology study results, current and the previous medication list, current and the previous medical events, and today's lab showed hemoglobin 8.9, hematocrit 26.5 with normal platelet count with BUN of 28, but normal creatinine, glucose 175, magnesium 2.5, total protein 6, albumin 3.4. PHYSICAL EXAMINATION: GENERAL: An 87-year-old male. VITAL SIGNS: Afebrile with pulse of 88, respiratory rate 20 to 22, blood pressure 152/74. HEENT: Showed pale, dry oral mucous membrane. Nonicteric sclerae. LUNGS: Few scattered crepitation. Decreased air entry at bases. HEART: Positive S1 and S2. ABDOMEN: Soft with mild generalized tenderness. No mass or organomegaly. No rebound tenderness or guarding. EXTREMITIES: Without significant clubbing, cyanosis or edema. NEUROLOGICAL: No new reported neurological deficits, sensory or motor. No reported new focal deficits. IMPRESSION: 1. Anemia with re-exacerbation of peptic ulcer disease. 2. Diffuse diverticulosis without evidence of acute diverticulitis with internal hemorrhoids and left-sided colitis. 3. Multiple past medical history including mainly, but not limited to poorly-controlled diabetes mellitus, chronic obstructive pulmonary disease, coronary artery disease, hypertension, status post coronary artery bypass graft. 4. known history of status post cholecystectomy. SUGGESTIONS: 1. Continue current management. 2. High-fiber diet. 3. No citrus, no seeds. 4. Cardiology followup. 5. Further recommendation to follow. Naren Sepulveda MD
--- NOTE | 2018-03-06 08:23 | DS ---
HISTORY OF PRESENT ILLNESS: The patient was admitted to the hospital with chief complaint of weakness, fatigue, tiredness, shortness of breath. The patient came to the ER, advised admission. Past medical history includes pulmonary embolism, COPD. The patient was found to have anemia. Patient had a endoscopy, colonoscopy. The patient CAT scan, CT angiogram, The patient discharge, follow up outpatient. IMPRESSION: Anemia, gastrointestinal bleeding, chronic obstructive pulmonary disease. Isidro Larson MD
== END 2018-03-03 13:02 | disposition home or self-care (01) | DRG 811 ==
LOC: C.ER 09:59 → C.9E 12:21 → C.3T 17:26 → OBSVTOIN 02-26 13:03
PROVIDERS: ADMIT Internal Medicine Pulmonary Disease; ATTEND Internal Medicine Pulmonary Disease
PROC: 0DJ08ZZ Inspection of Upper Intestinal Tract, Via Natural or Artificial Opening Endoscopic (ICD-10-PCS; 2018-02-27)
PROC: 0DBE8ZX Excision of Large Intestine, Via Natural or Artificial Opening Endoscopic, Diagnostic (ICD-10-PCS; principal; 2018-03-02 08:26)
DX: D50.0 Iron deficiency anemia secondary to blood loss (chronic) (principal); K29.71 Gastritis, unspecified, with bleeding; J44.1 Chronic obstructive pulmonary disease with (acute) exacerbation; E11.65 Type 2 diabetes mellitus with hyperglycemia; I10 Essential (primary) hypertension; Z86.711 Personal history of pulmonary embolism; K44.9 Diaphragmatic hernia without obstruction or gangrene; K21.0 Gastro-esophageal reflux disease with esophagitis; I25.10 Atherosclerotic heart disease of native coronary artery without angina pectoris; R00.0 Tachycardia, unspecified; K57.30 Diverticulosis of large intestine without perforation or abscess without bleeding; Z95.1 Presence of aortocoronary bypass graft; Z87.891 Personal history of nicotine dependence